=== PATIENT | male | born 1940 | race Caucasian/White ===

== ENCOUNTER → 2021-08-27 10:42 | Outpatient (CLI) | payer MEDICARE, OTHER, SELFPAY | PROVIDERS: PCP Family Medicine; Visit Provider Urology | DX: R39.9 Unspecified symptoms and signs involving the genitourinary system (principal) | CPT/HCPCS: 52000; 81002; 87086 ==

== ENCOUNTER 2021-08-29 18:15 | Emergency (ER) | payer MEDICARE, OTHER, SELFPAY ==
[2021-08-29 18:19] VITALS: BP 151/75; PULSE 77; RESP 19; TEMP 36.5; O2SAT 96; BMI 35.2
--- NOTE | 2021-08-29 18:21 | ED_ITS ---
HPI - Abdominal Pain General Chief Complaint: Urogenital-Male Stated Complaint: pain in the prostate/bladder, low grade fever Time Seen by Provider: 08/29/21 18:19 History of Present Illness HPI narrative: 80-year-old male nonsmoker presents with his in the chief complaint of some fullness and discomfort in his bladder for the past day or 2 as well as a subjective low-grade fever. He states his symptoms started after having a scope by the urologist a few days ago and having a catheter placed. He denies any nausea, vomiting or diarrhea. He has had no runny nose, sore throat or cough. He denies chest pain or shortness of breath. He is not dizzy nor weak or lightheaded. He denies any obvious palliation of his pain but states that it builds a bit while he feels like he is urinating and then goes away relatively soon afterwards Related Data Home Medications Medication Instructions Recorded Confirmed aspirin 81 mg tablet,delayed 81 mg PO DAILY 07/31/21 08/27/21 release losartan 100 1 tab PO DAILY 07/31/21 08/27/21 mg-hydrochlorothiazide 12.5 mg tablet melatonin 1 mg tablet 1 mg PO BEDTIME PRN 07/31/21 08/27/21 multivitamin (Daily Multi-Vitamin) 1 tab PO DAILY 07/31/21 08/27/21 tamsulosin 0.4 mg capsule 0.4 mg PO BEDTIME 07/31/21 08/27/21 Previous Rx's Medication Instructions Recorded cefuroxime axetil 500 mg tablet 500 mg PO BID #14 tab 08/29/21 Allergies Allergy/AdvReac Type Severity Reaction Status Date / Time meperidine [From Demerol] Allergy Unknown Verified 08/27/21 09:48 metronidazole [From Flagyl] Allergy Verified 08/29/21 18:27 Review of Systems Review of Systems Narrative: GENERAL: See HPI HEENT: Denies sinus pain, ear pain, sore throat, difficulty swallowing, dizziness. RESPIRATORY: Denies dyspnea, cough, wheezing, hemoptysis, sputum. CARDIOVASCULAR: Denies chest pain, palpitations, orthopnea, edema, GASTROINTESTINAL: See HPI : Denies dysuria, frequency, incontinence, hematuria, urinary retention. MUSCULOSKELETAL: denies weakness, joint pain, or bony pain SKIN: Denies rash, skin lesions, or other NEUROLOGIC: Denies weakness, headache, numbness, change in speech, confusion, seizures, incoordination. PSYCHIATRIC: No concerning psychosocial issues. 12 point review of systems is negative except for those stated above Patient History Medical History (Updated 08/29/21 @ 20:24 by Jensen Christianson DO) Arthritis BPH (benign prostatic hyperplasia) Coronary heart disease Diverticular disease Elevated PSA Heart attack High blood pressure Kidney stones Lower urinary tract symptoms Surgical History History of appendectomy History of colon surgery History of extraction of renal calculus History of prostate biopsy Family History Father BPH (benign prostatic hyperplasia) Coronary artery disease HI (hearing impairment) Mother Hyperlipidemia Hypertension Social History marital status: number of children: 4 Smoking Status: Never smoker alcohol intake: never caffeine: Yes Type(s) of exercise: walking frequency: daily duration: 15-30 minutes/day Smoking Status: Never smoker Exam Narrative Exam Narrative: GENERAL: [72 year old patient appears stated age. Well-developed patient, in mild distress. HEAD: Atraumatic. Normocephalic. EYES: Pupils equal round and reactive. Extraocular motions intact. No scleral icterus. No injection or drainage. ENT: Nose without bleeding, purulent drainage. Throat without erythema, tonsillar hypertrophy or exudate. Airway patent. NECK: Trachea midline. Non tender CARDIOVASCULAR: Regular rate and rhythm without murmurs, gallops, or rubs. RESPIRATORY: Clear to auscultation. Breath sounds equal bilaterally. No wheezes, rales, or rhonchi. GASTROINTESTINAL: Abdomen soft, mild suprapubic tenderness, nondistended. EXTREMITIES: No edema or joint tenderness. BACK: Nontender without deformity or crepitance. No flank tenderness. NEURO: AOx3. SKIN: No rash or erythema of visible areas Initial Vital Signs Initial Vital Signs: Vital Signs Temperature 97.7 F 08/29/21 18:19 Pulse Rate 77 08/29/21 18:19 Respiratory Rate 19 08/29/21 18:19 Blood Pressure 151/75 H 08/29/21 18:19 Pulse Oximetry 96 08/29/21 18:19 Course Orders Ordered: ED Orders 08/29/21 19:20 Ictotest Urine Stat UA dip and micro [Urinalysis and Microscopic] Stat Urine Culture Stat Discontinued Medications Cefazolin Sodium (Cephalexin 250 Mg Prepack) 1 bottle MISC SEEINSTR ONE Stop: 08/29/21 20:23 Last Admin: 08/29/21 20:30 Dose: 2 cap Documented by: SHALINI Vital Signs Vital signs: Vital Signs - 8 hr 08/29/21 18:19 08/29/21 20:37 Temperature 97.7 F 97.7 F Pulse Rate 77 72 Respiratory Rate 19 16 Blood Pressure 151/75 H 149/70 H Pulse Oximetry 96 96 MDM - Abdominal Pain Lab Data Labs: Lab Results 08/29/21 Range/Units 19:20 Urine Color Red Urine Appearance Cloudy Urine pH 6.5 (4.5-8.0) Ur Specific [place] 1.025 (1.000-1.035) Urine Protein 3+ H (Negative) Urine Glucose (UA) Trace H (Negative) g/dL Urine Ketones Trace H (NEGATIVE) Urine Occult Blood 3+ H (Negative) Urine Nitrate Positive H (Negative) Urine Bilirubin 1+ H (NEGATIVE) Ur Bilirubin Confirm Negative (Negative) Urine Urobilinogen 1.0 (0.2) E.U./dL Ur Leukocyte Esterase 1+ H (NEGATIVE) Urine RBC 10-30/hpf H (0-5/HPF) Urine WBC 5-10/hpf H (0-5/HPF) Amorphous Sediment 2+ Urine Bacteria Moderate (10-30) H (None) Ur Culture Indicated? Specimen cultured MDM Narrative Medical decision making narrative: Patient is reassuring history and physical exam. There are no signs of sepsis. Urine appears to be the source, particularly likely given recent instrumentation. Initial antibiotics given and prescription sent for the remainder. Return precautions discussed and questions answered to his apparent satisfaction Discharge Plan Departure Patient Disposition: Home Clinical Impression: Lower urinary tract symptoms Instructions: DI for Urinary Tract Infection (UTI) Activity Restrictions/Additional Instructions: *You have been diagnosed with [urinary tract infection] *What to do: *Please continue to take your regular medications as directed. [ x] New medication prescriptions sent to your pharmacy: [[facility] in [place]] [ ] New medication written as a paper prescription [ ] No new medications given *Please follow up with your primary care provider in 2-3 days, call for an appointment. Let them know you were seen in the Emergency Department and that we ask that you be seen in follow up. We will electronically transmit a record of today's note if your PCP is in our system *If you do not have a primary care provider please contact the [facility] Resource line at [phone]. They will ask some questions about your medical history and help get you set up with a doctor in the community. *Return to Emergency Department if you should have any new, worsening or concerning symptoms, such as [fever greater than 101 F, shaking chills, worsening pain, persistent vomiting or other bothersome symptoms] Prescriptions: New cefuroxime axetil 500 mg tablet 500 mg PO BID Qty: 14 0RF No Action tamsulosin 0.4 mg capsule 0.4 mg PO BEDTIME 0RF losartan-hydrochlorothiazide 100-12.5 mg tablet 1 tab PO DAILY 0RF aspirin 81 mg tablet,delayed release (DR/EC) 81 mg PO DAILY 0RF melatonin 1 mg tablet 1 mg PO BEDTIME PRN0RF multivitamin [Daily Multi-Vitamin] Tablet 1 tab PO DAILY 0RF Referrals: Callum Jain MD [Primary Care Provider] -
[2021-08-29 19:36] LABS: Appearance Urine UA CLOUDY; Bilirubin Urine UA 1+ (NEGATIVE); Color Urine UA RED; Glucose Urine UA TRACE g/dL (Negative); Ketones Urine UA TRACE (NEGATIVE); Leukocyte Esterase Urine UA 1+ (NEGATIVE); Nitrite Urine UA POSITIVE (Negative); Occult Blood Urine UA 3+ (Negative); Protein Urine UA 3+ (Negative); Specific Gravity Urine UA 1.025 (1.000-1.035); pH Urine UA 6.5 (4.5-8.0)
[2021-08-29 20:01] LABS: Ictotest Urine Negative (Negative)
[2021-08-29 20:02] LABS: Amorphous Sediment Urine 2+; Bacteria Urine Moderate (10-30); Culture Indicated Urine Specimen Cultured; RBC Urine 10-30/HPF (0-5/HPF); WBC Urine 5-10/HPF (0-5/HPF)
[2021-08-29] MEDS: cephALEXin 250 MG PREPACK 1 BOTTLE MISC (20:30)
[2021-08-29 20:37] VITALS: BP 149/70; PULSE 72; RESP 16; TEMP 36.5; O2SAT 96
== END 2021-08-29 20:35 | disposition home or self-care (01) ==
PROVIDERS: Emergency Provider Emergency Medicine; PCP Family Medicine
DX: N39.0 Urinary tract infection, site not specified (principal); R39.9 Unspecified symptoms and signs involving the genitourinary system
CPT/HCPCS: 81001; 87086; 99281; 99282

== ENCOUNTER 2021-10-12 13:02 | Emergency (ER) | payer MEDICARE, OTHER, SELFPAY ==
[2021-10-12] VITALS (20 sets, daily range): BP systolic 188–213; BP diastolic 91–109; PULSE 57–77; RESP 14–20; TEMP 36.3; O2SAT 92–97; BMI 33.7
--- NOTE | 2021-10-12 13:13 | ED.ABDPAIN ---
HPI - Abdominal Pain General Stated Complaint: Severe abd pain- hx of prostate issues Time Seen by Provider: 10/12/21 13:12 Related Data Home Medications Medication Instructions Recorded Confirmed losartan 100 1 tab PO DAILY 07/31/21 09/12/21 mg-hydrochlorothiazide 12.5 mg tablet melatonin 1 mg tablet 1 mg PO BEDTIME PRN 07/31/21 09/12/21 multivitamin (Daily Multi-Vitamin) 1 tab PO DAILY 07/31/21 09/12/21 Previous Rx's Medication Instructions Recorded tamsulosin 0.4 mg capsule (Flomax) 0.8 mg PO DAILY #90 cap 09/12/21 finasteride 5 mg tablet 5 mg PO DAILY #30 tab 09/16/21 Allergies Allergy/AdvReac Type Severity Reaction Status Date / Time meperidine [From Demerol] Allergy Unknown Verified 09/12/21 08:16 metronidazole [From Flagyl] Allergy Verified 09/12/21 08:16 Patient History Medical History (Updated 09/16/21 @ 14:44 by Macario Montes De Oca MD) Arthritis BPH (benign prostatic hyperplasia) Coronary heart disease Diverticular disease Elevated PSA Heart attack High blood pressure Kidney stones Lower urinary tract symptoms Urinary retention due to benign prostatic hyperplasia Surgical History History of appendectomy History of colon surgery History of extraction of renal calculus History of prostate biopsy Family History Father BPH (benign prostatic hyperplasia) Coronary artery disease HI (hearing impairment) Mother Hyperlipidemia Hypertension Social History marital status: number of children: 4 Smoking Status: Never smoker alcohol intake: never caffeine: Yes Type(s) of exercise: walking frequency: daily duration: 15-30 minutes/day Smoking Status: Never smoker Substance Use Type: does not use Discharge Plan Departure Prescriptions: No Action finasteride 5 mg tablet 5 mg PO DAILY Qty: 30 0RF losartan-hydrochlorothiazide 100-12.5 mg tablet 1 tab PO DAILY 0RF melatonin 1 mg tablet 1 mg PO BEDTIME PRN0RF multivitamin [Daily Multi-Vitamin] Tablet 1 tab PO DAILY 0RF tamsulosin [Flomax] 0.4 mg capsule 0.8 mg PO DAILY Qty: 90 0RF Rx Instructions: In the morning, 30 minutes after eating breakfast. Referrals: Callum Jain MD [Primary Care Provider] -
--- NOTE | 2021-10-12 13:25 | PC.NURSE ---
patient has urine retention and pain in ABD. A cathetor was placed and the pain in bladder diminished but the lower abd pain stayed.
--- NOTE | 2021-10-12 13:34 | ED.MALEGU ---
HPI - Male Genitourinary <Krystal Ryan [facility] - Last Filed: 10/12/21 18:43> General Chief complaint: Urogenital-Male Stated complaint: Severe abd pain- hx of prostate issues Time Seen by Provider: 10/12/21 13:12 Source: patient and family Mode of arrival: Family Vehicle History of Present Illness HPI Narrative: This is a 80-year-old male who presents to the emergency department complaining of epigastric pain, an and inability to void. Patient has a history of BPH, hypertension on losartan/HCTZ, history of renal calculi 1 time, diverticular disease. Patient had a recent cystoscopy by Dr. Montes De Oca on 09/12/2021 showing bilobar obstructive character of his prostate, it was measured at between 115 and 162 cc in volume. Patient presents to the emergency department today with urinary retention and epigastric pain which has been ongoing for the last week he states. He has a history of appendectomy, colon surgery, but no other abdominal surgeries. He states he had a large bowel movement this morning but did not have any bowel movement yesterday. He endorses sensation of abdominal bloating, he has dull pain across the right upper quadrant his abdomen, denies any history of GERD, does not take any medication for this. He has history of hypertension, states that he took his medications this morning. He states that his pain is an 8/10 in his abdomen, he had a Barrera catheter placed in triage for a bladder volume of 600, over 600 mL of clear yellow her urine is draining in the Barrera catheter currently. He takes tamsulosin and finasteride for his BPH. Patient denies any blood in his stool, denies any pelvic pressure or pain after his catheterization. Denies any recent fever, lightheadedness, dizziness, chest pain, shortness of breath, back pain, or vomiting. He endorses mild nausea. Related Data Home Medications Medication Instructions Recorded Confirmed losartan 100 1 tab PO DAILY 07/31/21 09/12/21 mg-hydrochlorothiazide 12.5 mg tablet melatonin 1 mg tablet 1 mg PO BEDTIME PRN 07/31/21 09/12/21 multivitamin (Daily Multi-Vitamin) 1 tab PO DAILY 07/31/21 09/12/21 Previous Rx's Medication Instructions Recorded tamsulosin 0.4 mg capsule (Flomax) 0.8 mg PO DAILY #90 cap 09/12/21 finasteride 5 mg tablet 5 mg PO DAILY #30 tab 09/16/21 hydrocodone 5 mg-acetaminophen 325 1 tab PO Q4-6H PRN #14 tab 10/12/21 mg tablet omeprazole 20 mg capsule,delayed 20 mg PO DAILY 14 Days #20 cap 10/12/21 release polyethylene glycol 3350 17 17 g PO DAILY PRN #119 g 10/12/21 gram/dose oral powder (Miralax) Allergies Allergy/AdvReac Type Severity Reaction Status Date / Time meperidine [From Demerol] Allergy Unknown Verified 09/12/21 08:16 metronidazole [From Flagyl] Allergy Verified 09/12/21 08:16 Review of Systems <CHARLES Burnette - Last Filed: 10/12/21 18:43> Review of Systems Narrative: General: denies fever, chills, malaise, sweats, fatigue Head/Neck: denies headache, neck pain, dizziness Eyes: denies visual changes, eye pain Cardio: denies chest pain, palpitations, edema Respiratory: denies dyspnea, cough, orthopnea GI: Endorses epigastric and right upper quadrant abdominal pain, + nausea, denies any vomiting, or diarrhea or problems with constipation : denies dysuria, hematuria, endorses urinary retention without frequency or incontinence MSK: denies joint pain, muscle weakness Skin: denies rash, itching, skin lesions or other Neuro: denies numbness, tingling Patient History <CHARLES Burnette - Last Filed: 10/12/21 18:43> Medical History Arthritis BPH (benign prostatic hyperplasia) Coronary heart disease Diverticular disease Elevated PSA Heart attack High blood pressure Kidney stones Lower urinary tract symptoms Urinary retention due to benign prostatic hyperplasia Surgical History History of appendectomy History of colon surgery History of extraction of renal calculus History of prostate biopsy Family History Father BPH (benign prostatic hyperplasia) Coronary artery disease [place] (hearing impairment) Mother Hyperlipidemia Hypertension Social History marital status: number of children: 4 Smoking Status: Never smoker alcohol intake: never caffeine: Yes Type(s) of exercise: walking frequency: daily duration: 15-30 minutes/day Smoking Status: Never smoker alcohol intake frequency: 0-2 drinks per day Substance Use Type: does not use Exam <CHARLES Burnette - Last Filed: 10/12/21 18:43> Narrative Exam Narrative: Independently reviewed vitals signs and nursing notes. General: cooperative, comfortable, in no acute distress, well developed and well groomed Head: atraumatic, symmetrical facial expressions Neck: supple, atraumatic, without lymphadenopathy. Eyes: pupils equal round and reactive, EOMI, conjunctiva normal Nose: nares patent, no rhinorrhea Mouth/Throat: uvula midline, moist mucus membranes Cardiovascular: regular rate and rhythm, no peripheral edema, warm extremities Respiratory: normal effort, able to speak in complete sentences, no audible wheezing, stridor, or rales. No retractions or tachypnea. GI: abdomen soft, obese, tender to palpation in epigastrium and right upper quadrant, mildly distended, no masses, without guarding or rebound tenderness. MSK: moves all extremities, ambulatory w/steady gait, neurovascularly intact, no weakness Skin: brisk capillary refill, no rash, no erythema Neuro: normal speech and cognition, A&O x3, normal tone Psych: mental status is grossly normal, congruent mood, normal affect, pleasant and cooperative Initial Vital Signs Initial Vital Signs: Vital Signs Pulse Oximetry 96 10/12/21 13:13 <Jensen Christianson DO - Last Filed: 10/13/21 09:24> Initial Vital Signs Initial Vital Signs: Vital Signs Pulse Oximetry 96 10/12/21 13:13 Course <CHARLES Burnette - Last Filed: 10/12/21 18:43> Orders Ordered: Discontinued Medications Hydrocodone Bitart/Acetaminophen (Hydrocodone/Acet 5/325 Tablet) 1 tab PO NOW ONE Stop: 10/12/21 14:25 Last Admin: 10/12/21 14:57 Dose: 1 tab Documented by: KYAW Hydrocodone Bitart/Acetaminophen (Hydrocodone/Acet 5/325 Prepack) 1 bottle MISC SEEINSTR ONE Stop: 10/12/21 18:47 Last Admin: 10/12/21 18:52 Dose: 1 bottle Documented by: KYAW Hydromorphone HCl (Hydromorphone 0.5 Mg Inj) 0.5 mg IV NOW ONE Stop: 10/12/21 17:17 Last Admin: 10/12/21 17:21 Dose: 0.5 mg Documented by: KYAW Ceftriaxone Sodium 1,000 mg/ (Sodium Chloride) 100 mls @ 200 mls/hr IV NOW ONE Stop: 10/12/21 13:54 Last Infusion: 10/12/21 17:14 Dose: 0 mls/hr Documented by: Admin: 10/12/21 14:23 Dose: 200 mls/hr Documented by: THOMAS Sodium Chloride (Normal Saline 0.9%) 500 mls @ 1,000 mls/hr IV BOLUS PRN PRN Reason: Fluid replacement Last Infusion: 10/12/21 17:42 Dose: 0 mls/hr Documented by: Admin: 10/12/21 15:00 Dose: 1,000 mls/hr Documented by: KYAW Ketorolac Tromethamine (Ketorolac 30 Mg/Ml Vial) 15 mg IV NOW ONE Stop: 10/12/21 13:54 Last Admin: 10/12/21 14:24 Dose: 15 mg Documented by: THOMAS Losartan Potassium (Losartan 25 Mg Tablet) 25 mg PO NOW ONE Stop: 10/12/21 14:56 Last Admin: 10/12/21 15:06 Dose: 25 mg Documented by: KYAW Ondansetron HCl (Ondansetron 4 Mg/2 Ml Inj) 4 mg IV NOW ONE Stop: 10/12/21 14:25 Last Admin: 10/12/21 14:57 Dose: 4 mg Documented by: KYAW Ondansetron HCl (Ondansetron 4 Mg/2 Ml Inj) 4 mg IV NOW ONE Stop: 10/12/21 18:47 Last Admin: 10/12/21 18:52 Dose: 4 mg Documented by: KYAW Ondansetron HCl (Ondansetron 4 Mg Odt Prepack) 1 bottle MISC SEEINSTR ONE Stop: 10/12/21 18:47 Last Admin: 10/12/21 18:52 Dose: 1 bottle Documented by: KYAW Pantoprazole Sodium (Pantoprazole 40 Mg Vial) 40 mg IV NOW ONE Stop: 10/12/21 14:24 Last Admin: 10/12/21 14:57 Dose: 40 mg Documented by: KYAW Reevaluation(s) Reevaluation #1: Reassess patient after his pain medication and ultrasound results. He states that he feels much better currently, denies any pain over a 3/10. Ultrasound shows no evidence cholelithiasis or cholecystitis however patient had a sonographic Becker sign. Ultrasound also showed an echogenic liver. Biliary tree is upper limits of normal measuring 6.6 mm, pancreas was obscured by bowel gas, incidental 8 mm gallbladder polyp was visible, gallbladder wall measured 2.0 mm. No pericholecystic fluid. Vital Signs Vital signs: Vital Signs - 8 hr 10/12/21 13:13 10/12/21 13:14 10/12/21 13:19 Temperature 97.4 F L Pulse Rate 65 57 L Respiratory Rate 20 Blood Pressure 213/100 H 213/100 H Pulse Oximetry 96 95 96 10/12/21 13:23 10/12/21 13:30 10/12/21 14:00 Temperature Pulse Rate 62 74 70 Respiratory Rate Blood Pressure 194/100 H 193/99 H Pulse Oximetry 95 95 96 10/12/21 14:01 10/12/21 14:30 10/12/21 14:31 Temperature Pulse Rate 67 69 68 Respiratory Rate Blood Pressure 204/98 H 208/92 H Pulse Oximetry 95 97 97 10/12/21 14:54 10/12/21 15:00 10/12/21 15:01 Temperature Pulse Rate 63 62 67 Respiratory Rate Blood Pressure 209/91 H 196/91 H Pulse Oximetry 96 92 92 10/12/21 15:06 10/12/21 15:38 10/12/21 16:00 Temperature Pulse Rate 77 71 67 Respiratory Rate Blood Pressure 196/91 H Pulse Oximetry 92 94 10/12/21 17:10 10/12/21 17:11 10/12/21 17:30 Temperature Pulse Rate 65 63 75 Respiratory Rate Blood Pressure 200/109 H 188/98 H Pulse Oximetry 94 94 93 10/12/21 18:00 Temperature Pulse Rate 63 Respiratory Rate Blood Pressure 192/99 H Pulse Oximetry 97 <Jensen Christianson DO - Last Filed: 10/13/21 09:24> Orders Ordered: Discontinued Medications Hydrocodone Bitart/Acetaminophen (Hydrocodone/Acet 5/325 Tablet) 1 tab PO NOW ONE Stop: 10/12/21 14:25 Last Admin: 10/12/21 14:57 Dose: 1 tab Documented by: KYAW Hydrocodone Bitart/Acetaminophen (Hydrocodone/Acet 5/325 Prepack) 1 bottle MISC SEEINSTR ONE Stop: 10/12/21 18:47 Last Admin: 10/12/21 18:52 Dose: 1 bottle Documented by: KYAW Hydromorphone HCl (Hydromorphone 0.5 Mg Inj) 0.5 mg IV NOW ONE Stop: 10/12/21 17:17 Last Admin: 10/12/21 17:21 Dose: 0.5 mg Documented by: KYAW Ceftriaxone Sodium 1,000 mg/ (Sodium Chloride) 100 mls @ 200 mls/hr IV NOW ONE Stop: 10/12/21 13:54 Last Infusion: 10/12/21 17:14 Dose: 0 mls/hr Documented by: Admin: 10/12/21 14:23 Dose: 200 mls/hr Documented by: THOMAS Sodium Chloride (Normal Saline 0.9%) 500 mls @ 1,000 mls/hr IV BOLUS PRN PRN Reason: Fluid replacement Last Infusion: 10/12/21 17:42 Dose: 0 mls/hr Documented by: Admin: 10/12/21 15:00 Dose: 1,000 mls/hr Documented by: KYAW Ketorolac Tromethamine (Ketorolac 30 Mg/Ml Vial) 15 mg IV NOW ONE Stop: 10/12/21 13:54 Last Admin: 10/12/21 14:24 Dose: 15 mg Documented by: THOMAS Losartan Potassium (Losartan 25 Mg Tablet) 25 mg PO NOW ONE Stop: 10/12/21 14:56 Last Admin: 10/12/21 15:06 Dose: 25 mg Documented by: KYAW Ondansetron HCl (Ondansetron 4 Mg/2 Ml Inj) 4 mg IV NOW ONE Stop: 10/12/21 14:25 Last Admin: 10/12/21 14:57 Dose: 4 mg Documented by: KYAW Ondansetron HCl (Ondansetron 4 Mg/2 Ml Inj) 4 mg IV NOW ONE Stop: 10/12/21 18:47 Last Admin: 10/12/21 18:52 Dose: 4 mg Documented by: KYAW Ondansetron HCl (Ondansetron 4 Mg Odt Prepack) 1 bottle MISC SEEINSTR ONE Stop: 10/12/21 18:47 Last Admin: 10/12/21 18:52 Dose: 1 bottle Documented by: KYAW Pantoprazole Sodium (Pantoprazole 40 Mg Vial) 40 mg IV NOW ONE Stop: 10/12/21 14:24 Last Admin: 10/12/21 14:57 Dose: 40 mg Documented by: KYAW Vital Signs Vital signs: Vital Signs - 8 hr 10/12/21 13:13 10/12/21 13:14 10/12/21 13:19 Temperature 97.4 F L Pulse Rate 65 57 L Respiratory Rate 20 Blood Pressure 213/100 H 213/100 H Pulse Oximetry 96 95 96 10/12/21 13:23 10/12/21 13:30 10/12/21 14:00 Temperature Pulse Rate 62 74 70 Respiratory Rate Blood Pressure 194/100 H 193/99 H Pulse Oximetry 95 95 96 10/12/21 14:01 10/12/21 14:30 10/12/21 14:31 Temperature Pulse Rate 67 69 68 Respiratory Rate Blood Pressure 204/98 H 208/92 H Pulse Oximetry 95 97 97 10/12/21 14:54 10/12/21 15:00 10/12/21 15:01 Temperature Pulse Rate 63 62 67 Respiratory Rate Blood Pressure 209/91 H 196/91 H Pulse Oximetry 96 92 92 10/12/21 15:06 10/12/21 15:38 10/12/21 16:00 Temperature Pulse Rate 77 71 67 Respiratory Rate Blood Pressure 196/91 H Pulse Oximetry 92 94 10/12/21 17:10 10/12/21 17:11 10/12/21 17:30 Temperature Pulse Rate 65 63 75 Respiratory Rate Blood Pressure 200/109 H 188/98 H Pulse Oximetry 94 94 93 10/12/21 18:00 Temperature Pulse Rate 63 Respiratory Rate Blood Pressure 192/99 H Pulse Oximetry 97 MDM - Male Genitourinary <Krystal Ryan, [facility] - Last Filed: 10/12/21 18:43> Lab Data Result diagrams: 10/12/21 14:15 10/12/21 14:15 Labs: Lab Results 10/12/21 10/12/21 10/12/21 Range/Units 13:21 14:15 14:15 WBC 7.9 (4.5-11.0) X10^3/uL RBC 4.73 (4.5-5.9) X10^6/uL Hgb 15.5 (13.5-17.5) g/dL Hct 43.6 (41-53) % MCV 92.3 (80-100) fL MCH 32.7 (26-34) PG MCHC 35.5 (30-36) % RDW 13.3 (11.6-14.8) % Plt Count 218 (150-400) X10^3/uL Neut % (Auto) 76.2 H (50-75) % Lymph % (Auto) 10.0 L (25-40) % [place] % (Auto) 13.2 (3-14) % Eos % (Auto) 0.4 L (2-4) % Baso % (Auto) 0.2 (0-2) % Neut # (Auto) 6100 (065[address]-6588) /uL Lymph # (Auto) 800 L (5062-1148) /uL [place] # (Auto) 1000 H (0-900) /uL Eos # (Auto) 0 (0-450) /uL Baso # (Auto) 0 (0-100) /uL Sodium 138 (137-145) mmol/L Potassium 3.4 (3.4-5.1) mmol/L Chloride 103 (98-107) mmol/L Carbon Dioxide 25 (22-32) mmol/L BUN 15 (9-20) mg/dL Creatinine 1.13 (0.66-1.25) mg/dL Estimated GFR > 60.0 (>60) mL/min BUN/Creatinine Ratio 13.3 (6-22) Glucose 153 H (80-110) mg/dL Calcium 9.2 (8.4-10.2) mg/dL Total Bilirubin 2.2 H (0.2-1.3) mg/dL AST 660 H (17-59) IU/L ALT 403 H (<50) IU/L Alkaline Phosphatase 67 (38-126) U/L Total Protein 7.7 (6.3-8.2) g/dL Albumin 4.3 (3.5-5.0) g/dL Globulin 3.4 (1.7-4.1) g/dL Albumin/Globulin Ratio 1.3 (1.0-2.8) Lipase 91 (23-300) U/L Procalcitonin (<0.5) ng/mL Urine Color Yellow Urine Appearance Clear Urine pH 6.5 (4.5-8.0) Ur Specific [place] 1.015 (1.000-1.035) Urine Protein 2+ H (Negative) Urine Glucose (UA) Negative (Negative) g/dL Urine Ketones Negative (NEGATIVE) Urine Occult Blood 1+ H (Negative) Urine Nitrate Negative (Negative) Urine Bilirubin Negative (NEGATIVE) Urine Urobilinogen 0.2 (0.2) E.U./dL Ur Leukocyte Esterase Negative (NEGATIVE) Urine RBC 5-10/hpf H (0-5/HPF) Urine WBC 0-1/hpf (0-5/HPF) Ur Squamous Epith Cells 0-1 /hpf (0-5/HPF) Urine Bacteria None seen (None) Ur Culture Indicated? Cult not indicated 10/12/21 Range/Units 14:15 WBC (4.5-11.0) X10^3/uL RBC (4.5-5.9) X10^6/uL Hgb (13.5-17.5) g/dL Hct (41-53) % MCV (80-100) fL MCH (26-34) PG MCHC (30-36) % RDW (11.6-14.8) % Plt Count (150-400) X10^3/uL Neut % (Auto) (50-75) % Lymph % (Auto) (25-40) % [place] % (Auto) (3-14) % Eos % (Auto) (2-4) % Baso % (Auto) (0-2) % Neut # (Auto) (7540-9715) /uL Lymph # (Auto) (2629-3198) /uL [place] # (Auto) (0-900) /uL Eos # (Auto) (0-450) /uL Baso # (Auto) (0-100) /uL Sodium (137-145) mmol/L Potassium (3.4-5.1) mmol/L Chloride (98-107) mmol/L Carbon Dioxide (22-32) mmol/L BUN (9-20) mg/dL Creatinine (0.66-1.25) mg/dL Estimated GFR (>60) mL/min BUN/Creatinine Ratio (6-22) Glucose (80-110) mg/dL Calcium (8.4-10.2) mg/dL Total Bilirubin (0.2-1.3) mg/dL AST (17-59) IU/L ALT (<50) IU/L Alkaline Phosphatase (38-126) U/L Total Protein (6.3-8.2) g/dL Albumin (3.5-5.0) g/dL Globulin (1.7-4.1) g/dL Albumin/Globulin Ratio (1.0-2.8) Lipase (23-300) U/L Procalcitonin 0.14 (<0.5) ng/mL Urine Color Urine Appearance Urine pH (4.5-8.0) Ur Specific [place] (1.000-1.035) Urine Protein (Negative) Urine Glucose (UA) (Negative) g/dL Urine Ketones (NEGATIVE) Urine Occult Blood (Negative) Urine Nitrate (Negative) Urine Bilirubin (NEGATIVE) Urine Urobilinogen (0.2) E.U./dL Ur Leukocyte Esterase (NEGATIVE) Urine RBC (0-5/HPF) Urine WBC (0-5/HPF) Ur Squamous Epith Cells (0-5/HPF) Urine Bacteria (None) Ur Culture Indicated? Urine Dip Bedside Urine Glucose Negative Bedside Urine Bilirubin - Negative Bedside Urine Ketone - Negative Urine Specific [place] 1.03 Bedside Urine Occult Blood ++ Bedside Urine pH 6 Bedside Urine Protein + 30 Bedside Urine Urobilinogen - Negative Bedside Urine Nitrite - Negative Bedside Urine Leukocytes - Negative Esterase Imaging Data US - abdomen: Radiologist's Impression: PROCEDURE: US ABDOMEN LIMITED ? INDICATIONS:? RUQ/EPIGASTRIC PAIN ? TECHNIQUE:? Real-time focused scanning was performed of the abdomen, with image documentation.? ? COMPARISON:? None. ? FINDINGS:? ? Liver is normal in size.? Liver is diffusely echogenic. ? 8 millimeter gallbladder polyp noted.? Gallbladder wall measures 2.0 millimeters.? No pericholecystic fluid.? Sonographic Becker sign reported. ? Biliary tree is nondilated.? Biliary tree is at the upper limits of normal measuring 6.6 millimeters. ? Pancreas is obscured by bowel gas.? ? ? IMPRESSION:? ? 1. No sonographic evidence of cholelithiasis or cholecystitis.? Sonographic Becker sign reported. If there is continued clinical concern for cholecystitis, a nuclear medicine HIDA scan should be considered for further evaluation. ? 2. Echogenic liver. Finding typically represents fatty infiltration; however, finding is nonspecific and correlation with clinical and laboratory findings is recommended to exclude other etiologies including hepatic cirrhosis. ? ? ? Dictated by: Jolanta Go MD, PhD on 10/12/2021 at 14:52 ? ? Approved by: Jolanta Go MD, PhD on 10/12/2021 at 14:53 ? CT scan - abdomen/pelvis: Radiologist's Impression: PROCEDURE:? CT ABDOMEN PELVIS W CON ? INDICATIONS:? epigastric pain, no kayla etiology on us, +ruq pain/tenderness ? TECHNIQUE:? After the administration of oral and IV contrast, axial sections were acquired from the lung bases to the pubic symphysis.? Coronal and sagittal reformats were performed.? For radiation dose reduction, the following was used:? automated exposure control, adjustment of mA and/or kV according to patient size. ? COMPARISON:? [facility], , US ABDOMEN LIMITED, 10/12/2021, 14:28. ? FINDINGS:? Image quality:? Excellent.? ? Lung bases:? Unremarkable.? ? A small hiatal hernia is incidentally noted.? Heart:? No significant findings. ? ? ABDOMEN: Liver: The liver is normal in size and demonstrates no suspicious lesions. Diffuse fatty liver infiltration is noted.? Gallbladder:? The liver is prominent in size, without additional CT abnormalities seen. ? ? Biliary ducts:? Unremarkable.? ? Pancreas:? Unremarkable.? ? Spleen:? Unremarkable.? ? Adrenal Glands:? There is a right adrenal nodule seen that measures 1.5 cm, as on series 2, image 19. On this postcontrast study, this measures 27 Hounsfield units.? Thickening of the left adrenal gland is seen, yet without focal nodules.? Kidneys and Ureters:? Along the lateral aspect of the right kidney, there is an exophytic simple cyst that measures water density and 1.3 cm.? Kidneys demonstrate normal size and enhance symmetrically.? There is no hydronephrosis.? ? Stomach and Bowel:? Stomach, small bowel loops, and colon are unremarkable.? Distal colonic diverticulosis is seen, without findings of active diverticulitis. Peritoneum:? No abnormal intraperitoneal fluid.? No free air.? ? Ventral Wall: ? No hernia.? Abdominal Nodes:? No retroperitoneal or mesenteric adenopathy by size criteria.? Vessels:? Aorta and inferior vena cava are normal in size.? Atherosclerotic calcification is noted.? ? PELVIS: Pelvic Organs:? The prostate is enlarged, measuring at least 7.5 cm. Bladder:? A Barrera catheter is seen within a decompressed bladder.? The bladder wall demonstrates moderate generalized thickening. Pelvic Nodes: No enlarged lymph nodes.? Miscellaneous: No inguinal hernias are seen. ? ? Pelvic clips are seen. ? Bones:? Degenerative changes are seen throughout, which are worst at the L5-S1 level. ? ? IMPRESSION:? ? Prominent size of the gallbladder seen, yet without additional gallbladder abnormality seen by CT. ? ? ? Incidental note is made of: Small hiatal hernia Fatty liver infiltration Simple right renal cyst Diverticulosis, without active diverticulitis Focal L5-S1 degenerative change Postoperative pelvic clips Enlarged prostate Barrera catheter, with generalized bladder wall thickening ? ? Dictated by: Guy Leiva M.D. on 10/12/2021 at 14:39 ? ? Approved by: Guy Leiva M.D. on 10/12/2021 at 14:44 ? Abdominal MRI: Radiologist's Impression: PROCEDURE:? MR ABDOMEN WO CON ? INDICATIONS:? +becker, concern for biliary obstruction, not evident on CT/ ? TECHNIQUE:? Coronal HASTE through the abdomen, axial 2-D FLASH in- and [id number], and breath-hold T2 FSE with fat saturation through the biliary system and pancreas.? Oblique coronal and axial thin-slice HASTE, radial thick-slab HASTE centered on the extrahepatic bile ducts.? ? ? Intravenous secretin:? Not requested.? ? COMPARISON:? [facility], CT, CT ABDOMEN PELVIS W CON, 10/12/2021, 15:30.? [facility], US, US ABDOMEN LIMITED, 10/12/2021, 14:28. ? FINDINGS:? Image quality:? This examination is limited by involuntary motion artifact.? The patient declined repeat images. ? Pancreas and biliary system:? Fat stranding is again seen adjacent to the gallbladder.? No definite gallstones are seen on these images.? A likely nondependent gallbladder wall polyp can be seen.? The gallbladder is prominent in size. ? No intrahepatic biliary ductal dilatation is seen.? The common bile duct measures at the upper limits of normal at 7 mm.? There is an abrupt cut off of the distal common bile duct, without smooth tapering.? ? Pancreas is normal in morphology, without adjacent soft tissue edema.? Pancreatic duct is normal in caliber, without developmental anomalies.? ? Other solid organs:? Liver is normal in size.? Diffuse fatty liver infiltration can be seen.? Spleen is normal in size.? No adrenal nodules.? Both kidneys are normal in size, without hydronephrosis.? ? Nodes and vessels:? No retroperitoneal or mesenteric adenopathy by size criteria.? Aorta and inferior vena cava are normal in size.? ? Bowel and peritoneum:? Unenhanced bowel loops are normal in caliber.? No free fluid.? ? Lung bases:? No basal pleural effusions.? Heart size is normal.? ? Bones and soft tissues:? No ventral hernias.? Bone marrow is of normal overall signal.? IMPRESSION:? Prominent gallbladder with fluid seen adjacent to the gallbladder. ? No definite gallstones are seen. ? The common bile duct measures at the upper limits of normal.? The distal common bile duct demonstrates an abrupt cutoff, rather than a smooth taper.? Concern is raised for a potential distal common duct stone.? No stone can be seen at this site on the recent prior CT examination.? If clinically appropriate, a follow-up ERCP could be considered for further evaluation. ? Incidental note is made of: Fatty liver infiltration ? Dictated by: Guy Leiva M.D. on 10/12/2021 at 16:50 ? ? Approved by: Guy Leiva M.D. on 10/12/2021 at 16:54 ? MDM Narrative Medical decision making narrative: 80-year-old male with history of BPH on finasteride and tamsulosin, hypertension on losartan/HCTZ, presents to the emergency department today for right upper quadrant and epigastrium pain, additionally urinary retention related to his BPH. Patient had a cystoscopy by Dr. Montes De Oca on 09/12/2021 with a prostate them measured between 115 and 162 cc in volume. He had bulging into the bladder and prostate margin was difficult to see. He had urinary retention at that time and was started on tamsulosin 0.8 mg. Today he did have urinary retention, over 600 mL of clear yellow urine was in his bladder, a Barrera catheter was placed. He was found to have 1+ blood, 2+ protein, without signs of infection of his urine. Patient was complaining of epigastric pain and nausea. Denies any vomiting fever, back pain, chest pain, shortness of breath. He was tender in the right upper quadrant, right upper quadrant ultrasound to not have sonographic evidence of cholelithiasis or cholecystitis. He he did have a sonographic Becker sign, an 8 mm gallbladder polyp was noted, gallbladder wall measured 2 mm, no pericholecystic fluid. Biliary tree was nondilated but measured the upper limits of normal at 6.[address] was obtained to correlate with elevated liver enzymes, T bilirubin of 2.2, sonographic Becker sign, no leukocytosis, patient does have a left shift however, AST is 660, ALT for a 3, alk phos 67, lipase 91, procalcitonin 0.14, hepatitis panel is pending. CT abdomen shows diverticular disease without evidence of diverticulosis, prominent size of the gallbladder is seen without additional gallbladder abnormality on CT. Incidentally patient has a small hiatal hernia, fatty liver infiltration, simple right renal cyst, postoperative pelvic clips, enlarged prostate, Barrera catheter with generalized bladder wall thickening. MRCP obtained which shows a prominent gallbladder however no biliary duct stone was visualized common bile duct measures upper limits of normal, distal common bile duct demonstrates an abrupt cutoff rather than a smooth taper. Concern is raised for potential distal common duct stone. No stone was visualized on CT scan. Consult with Dr. Borja regarding patient's exam, lab work, pain, and p.o. tolerance. She recommends watchful waiting, follow-up with Dr. Jain for lab work in a few days to see how this is improving. Patient's pain is well controlled currently he received 1 hydrocodone and 1.5 mg dose of Dilaudid in the emergency department. Recommend he avoid ibuprofen. He was hypertensive today and states that he took his regular antihypertensive. He states that he has been in a lot of pain and is likely the reason for the elevation is blood pressure. Was given additional 25 mg of losartan due to his low heart rate I did want to give any beta-chandrika. Encouraged him to follow-up closely with Dr. Montes De Oca for his urinary retention. On cystoscopy on 09/12/2021 volume study shows an enlarged prostate at approximately 150 cc. He was started on 0.8 mg of tamsulosin in addition to his finasteride. Dr. Montes De Oca notes that if he fails this treatment he recommends open simple prostatectomy. Patient is appropriate and amenable to discharge home. Vital signs are stable on repeat examination is unremarkable. Patient has been informed of results. Patient has been given strict return to ER precautions for any new or worsening symptoms. Patient understands to follow up closely with outpatient providers as instructed. Patient understands plan and agrees to discharge home. All questions and concerns answered at this time. <Jensen Christianson DO - Last Filed: 10/13/21 09:24> Lab Data Labs: Lab Results 10/12/21 10/12/21 10/12/21 Range/Units 13:21 14:15 14:15 WBC 7.9 (4.5-11.0) X10^3/uL RBC 4.73 (4.5-5.9) X10^6/uL Hgb 15.5 (13.5-17.5) g/dL Hct 43.6 (41-53) % MCV 92.3 (80-100) fL MCH 32.7 (26-34) PG MCHC 35.5 (30-36) % RDW 13.3 (11.6-14.8) % Plt Count 218 (150-400) X10^3/uL Neut % (Auto) 76.2 H (50-75) % Lymph % (Auto) 10.0 L (25-40) % [place] % (Auto) 13.2 (3-14) % Eos % (Auto) 0.4 L (2-4) % Baso % (Auto) 0.2 (0-2) % Neut # (Auto) 6100 (4804-9403) /uL Lymph # (Auto) 800 L (3130-1728) /uL [place] # (Auto) 1000 H (0-900) /uL Eos # (Auto) 0 (0-450) /uL Baso # (Auto) 0 (0-100) /uL Sodium 138 (137-145) mmol/L Potassium 3.4 (3.4-5.1) mmol/L Chloride 103 (98-107) mmol/L Carbon Dioxide 25 (22-32) mmol/L BUN 15 (9-20) mg/dL Creatinine 1.13 (0.66-1.25) mg/dL Estimated GFR > 60.0 (>60) mL/min BUN/Creatinine Ratio 13.3 (6-22) Glucose 153 H (80-110) mg/dL Calcium 9.2 (8.4-10.2) mg/dL Total Bilirubin 2.2 H (0.2-1.3) mg/dL AST 660 H (17-59) IU/L ALT 403 H (<50) IU/L Alkaline Phosphatase 67 (38-126) U/L Total Protein 7.7 (6.3-8.2) g/dL Albumin 4.3 (3.5-5.0) g/dL Globulin 3.4 (1.7-4.1) g/dL Albumin/Globulin Ratio 1.3 (1.0-2.8) Lipase 91 (23-300) U/L Procalcitonin (<0.5) ng/mL Urine Color Yellow Urine Appearance Clear Urine pH 6.5 (4.5-8.0) Ur Specific [place] 1.015 (1.000-1.035) Urine Protein 2+ H (Negative) Urine Glucose (UA) Negative (Negative) g/dL Urine Ketones Negative (NEGATIVE) Urine Occult Blood 1+ H (Negative) Urine Nitrate Negative (Negative) Urine Bilirubin Negative (NEGATIVE) Urine Urobilinogen 0.2 (0.2) E.U./dL Ur Leukocyte Esterase Negative (NEGATIVE) Urine RBC 5-10/hpf H (0-5/HPF) Urine WBC 0-1/hpf (0-5/HPF) Ur Squamous Epith Cells 0-1 /hpf (0-5/HPF) Urine Bacteria None seen (None) Ur Culture Indicated? Cult not indicated 10/12/21 Range/Units 14:15 WBC (4.5-11.0) X10^3/uL RBC (4.5-5.9) X10^6/uL Hgb (13.5-17.5) g/dL Hct (41-53) % MCV (80-100) fL MCH (26-34) PG MCHC (30-36) % RDW (11.6-14.8) % Plt Count (150-400) X10^3/uL Neut % (Auto) (50-75) % Lymph % (Auto) (25-40) % [place] % (Auto) (3-14) % Eos % (Auto) (2-4) % Baso % (Auto) (0-2) % Neut # (Auto) (6819-4461) /uL Lymph # (Auto) (5728-4066) /uL [place] # (Auto) (0-900) /uL Eos # (Auto) (0-450) /uL Baso # (Auto) (0-100) /uL Sodium (137-145) mmol/L Potassium (3.4-5.1) mmol/L Chloride (98-107) mmol/L Carbon Dioxide (22-32) mmol/L BUN (9-20) mg/dL Creatinine (0.66-1.25) mg/dL Estimated GFR (>60) mL/min BUN/Creatinine Ratio (6-22) Glucose (80-110) mg/dL Calcium (8.4-10.2) mg/dL Total Bilirubin (0.2-1.3) mg/dL AST (17-59) IU/L ALT (<50) IU/L Alkaline Phosphatase (38-126) U/L Total Protein (6.3-8.2) g/dL Albumin (3.5-5.0) g/dL Globulin (1.7-4.1) g/dL Albumin/Globulin Ratio (1.0-2.8) Lipase (23-300) U/L Procalcitonin 0.14 (<0.5) ng/mL Urine Color Urine Appearance Urine pH (4.5-8.0) Ur Specific [place] (1.000-1.035) Urine Protein (Negative) Urine Glucose (UA) (Negative) g/dL Urine Ketones (NEGATIVE) Urine Occult Blood (Negative) Urine Nitrate (Negative) Urine Bilirubin (NEGATIVE) Urine Urobilinogen (0.2) E.U./dL Ur Leukocyte Esterase (NEGATIVE) Urine RBC (0-5/HPF) Urine WBC (0-5/HPF) Ur Squamous Epith Cells (0-5/HPF) Urine Bacteria (None) Ur Culture Indicated? Urine Dip Bedside Urine Glucose Negative Bedside Urine Bilirubin - Negative Bedside Urine Ketone - Negative Urine Specific [place] 1.03 Bedside Urine Occult Blood ++ Bedside Urine pH 6 Bedside Urine Protein + 30 Bedside Urine Urobilinogen - Negative Bedside Urine Nitrite - Negative Bedside Urine Leukocytes - Negative Esterase Discharge Plan Departure Patient Disposition: Home Clinical Impression: Enlarged gallbladder, Diverticular disease, Gallbladder polyp, Fatty infiltration of liver, Epigastric abdominal pain Instructions: Eating a Diet Low in Saturated Fat, Trans Fat, and Cholesterol, Cholesterol-lowering Diet, DI for Cholecystitis Activity Restrictions/Additional Instructions: *You have been diagnosed with BPH with urinary retention. Please leave your Barrera catheter in until you follow-up with Dr. Montes De Oca. Please continue to take your finasteride and your tamsulosin unless he tells you otherwise. Please eat a diet low in fat for the next 2 weeks and follow up with Dr. Jain. We did not see any stone in your biliary duct system. Please take hydrocodone as needed for your pain with MiraLax so that you do not become too constipated. Please stay hydrated, take your other medications as prescribed. Please have your labs checked again by Dr. Jain to evaluate if this has resolved with your new diet change. Please return to the emergency department for any new or worsening symptoms. CONTROLLED SUBSTANCE DISCHARGE (Narcotic/benzodiazepine/Flexeril/Phenergan) 1. You have been prescribed narcotic medications, it does have acetaminophen/Tylenol/paracetamol in it, DO NOT TAKE MORE THAN 4,00mg in 24 hours of Tylenol. *Tramadol does not contain tylenol. 2. Please understand that we cannot provide further refills of narcotics, benzodiazepines or controlled substances through the ED and her pain management will need to be through your provider. 3. While on these medications you cannot drive or operate heavy machinery. 4. You cannot sign legal documents or perform any duties such as this. 5. As long as you are taking opiate pain medications he should also be taking a stool softener such as Colace, Dulcolax, MiraLAX or prune juice, to help avoid constipation. *What to do: *Please continue to take your regular medications as directed. [x ] New medication prescriptions sent to your pharmacy: [ ] [ ] New medication written as a paper prescription [ ] No new medications given *Please follow up with your primary care provider in 2-3 days, call for an appointment. Let them know you were seen in the Emergency Department and that we asked that you be seen for follow-up. We will electronically transmit a record of today's note if your PCP is in our system *If you do not have a primary care provider please contact [phone] to establish care with one of the [facility] primary care providers. *Return to Emergency Department if you should have any new, worsening or concerning symptoms, such as [fever greater than 101F, chills, worsening pain, persistent vomiting or other bothersome symptoms] Prescriptions: New hydrocodone-acetaminophen 5-325 mg tablet 1 tab PO Q4-6H PRN (Reason: pain) Qty: 14 0RF polyethylene glycol 3350 [Miralax] 17 gram/dose powder 17 g PO DAILY PRN (Reason: constipation) Qty: 119 0RF Rx Instructions: Please take once daily while on opiate medications omeprazole 20 mg capsule,delayed release(DR/EC) 20 mg PO DAILY 14 Days Qty: 20 0RF No Action finasteride 5 mg tablet 5 mg PO DAILY Qty: 30 0RF losartan-hydrochlorothiazide 100-12.5 mg tablet 1 tab PO DAILY 0RF melatonin 1 mg tablet 1 mg PO BEDTIME PRN0RF multivitamin [Daily Multi-Vitamin] Tablet 1 tab PO DAILY 0RF tamsulosin [Flomax] 0.4 mg capsule 0.8 mg PO DAILY Qty: 90 0RF Rx Instructions: In the morning, 30 minutes after eating breakfast. Referrals: Callum Jain MD [Primary Care Provider] - Macario Montes De Oca MD [Physician] - 5-7 days <Jensen Christianson DO - Last Filed: 10/13/21 09:24> [facility] Attestation: I was immediately available in the department for consultation. This documentation has been reviewed and I agree with assessment and plan. Supervised by Jensen Christianson DO
--- NOTE | 2021-10-12 13:39 | PC.NURSE ---
patient has complaints of 8/10 abd pain in his RUQ. He states that he still have his gall bladder, he does not drink and has never had pancreatitis that he is aware of. He is having bowel movements and is passing gas. He complains of feeling nauseated and gagged this morning but no vomiting.
--- NOTE | 2021-10-12 13:53 | DI.US.S_ITS ---
PROCEDURE: US ABDOMEN LIMITED INDICATIONS: RUQ/EPIGASTRIC PAIN TECHNIQUE: Real-time focused scanning was performed of the abdomen, with image documentation. COMPARISON: None. FINDINGS: Liver is normal in size. Liver is diffusely echogenic. 8 millimeter gallbladder polyp noted. Gallbladder wall measures 2.0 millimeters. No pericholecystic fluid. Sonographic Becker sign reported. Biliary tree is nondilated. Biliary tree is at the upper limits of normal measuring 6.6 millimeters. Pancreas is obscured by bowel gas. IMPRESSION: 1. No sonographic evidence of cholelithiasis or cholecystitis. Sonographic Becker sign reported. If there is continued clinical concern for cholecystitis, a nuclear medicine HIDA scan should be considered for further evaluation. 2. Echogenic liver. Finding typically represents fatty infiltration; however, finding is nonspecific and correlation with clinical and laboratory findings is recommended to exclude other etiologies including hepatic cirrhosis. Dictated by: Jolanta Go MD, PhD on 10/12/2021 at 14:52 Approved by: Jolanta Go MD, PhD on 10/12/2021 at 14:53
[2021-10-12 14:19] LABS: Appearance Urine UA CLEAR; Bilirubin Urine UA NEGATIVE (NEGATIVE); Color Urine UA YELLOW; Glucose Urine UA NEGATIVE (Negative); Ketones Urine UA NEGATIVE (NEGATIVE); Leukocyte Esterase Urine UA NEGATIVE (NEGATIVE); Nitrite Urine UA NEGATIVE (Negative); Occult Blood Urine UA 1+ (Negative); Protein Urine UA 2+ (Negative); Specific Gravity Urine UA 1.015 (1.000-1.035); Urobilinogen Urine UA 0.2 E.U./dL (0.2); pH Urine UA 6.5 (4.5-8.0)
[2021-10-12] MEDS: cefTRIAXone 1,000 MG in SODIUM CHLORIDE 0.9% 100 ML 200 ML IV (14:23)
[2021-10-12] MEDS: KETOROLAC 30 MG/ML VIAL 15 MG IV (14:24)
[2021-10-12 14:25] LABS: Add Manual Diff / Slide Review NO; Basophils Absolute Auto 0 /uL (0-100); Basophils Percent Auto 0.2 % (0-2); Eosinophils Absolute Auto 0 /uL (0-450); Eosinophils Percent Auto 0.4 % (2-4); Hematocrit 43.6 % (41-53); Hemoglobin 15.5 g/dL (13.5-17.5); Lymphocytes Absolute Auto 800 /uL (1100-4500); Mean Corpuscular HGB Conc 35.5 % (30-36); Mean Corpuscular Hemoglobin 32.7 PG (26-34); Mean Corpuscular Volume 92.3 fL (80-100); Monocytes Absolute Auto 1000 /uL (0-900); Monocytes Percent Auto 13.2 % (3-14); Neutrophils Absolute Auto 6100 /uL (1500-7000); Neutrophils Percent Auto 76.2 % (50-75); Platelet Count 218 X10^3/uL (150-400); Red Blood Cell Count 4.73 X10^6/uL (4.5-5.9); Red Cell Distribution Width 13.3 % (11.6-14.8); White Blood Cell Count 7.9 X10^3/uL (4.5-11.0)
[2021-10-12 14:27] LABS: RBC Urine 5-10/HPF (0-5/HPF); Squamous Epithelial Cell Urine 0-1 /HPF (0-5/HPF); WBC Urine 0-1/HPF (0-5/HPF)
[2021-10-12 14:28] LABS: Bacteria Urine None Seen; Culture Indicated Urine Cult Not Indicated
[2021-10-12 14:37] LABS: Alanine Aminotransferase 403 IU/L (<50); Albumin 4.3 g/dL (3.5-5.0); Albumin Globulin Ratio 1.3 (1.0-2.8); Alkaline Phosphatase 67 U/L (38-126); Aspartate Aminotransferase 660 IU/L (17-59); BUN Creatinine Ratio 13.3 (6-22); Bilirubin Total 2.2 mg/dL (0.2-1.3); Blood Urea Nitrogen 15 mg/dL (9-20); Calcium 9.2 mg/dL (8.4-10.2); Carbon Dioxide 25 mmol/L (22-32); Chloride 103 mmol/L (98-107); Estimated Glomerular Filt Rate > 60.0 mL/min (>60); Globulin 3.4 g/dL (1.7-4.1); Glucose 153 mg/dL (80-110); HEMOLYSIS 18 (0-50); Lipase 91 U/L (23-300); Potassium 3.4 mmol/L (3.4-5.1); Sodium 138 mmol/L (137-145); Total Protein 7.7 g/dL (6.3-8.2)
--- NOTE | 2021-10-12 14:51 | DI.CT.S_ITS ---
PROCEDURE: CT ABDOMEN PELVIS W CON INDICATIONS: epigastric pain, no kayla etiology on us, +ruq pain/tenderness TECHNIQUE: After the administration of oral and IV contrast, axial sections were acquired from the lung bases to the pubic symphysis. Coronal and sagittal reformats were performed. For radiation dose reduction, the following was used: automated exposure control, adjustment of mA and/or kV according to patient size. COMPARISON: [facility], US, US ABDOMEN LIMITED, 10/12/2021, 14:28. FINDINGS: Image quality: Excellent. Lung bases: Unremarkable. A small hiatal hernia is incidentally noted. Heart: No significant findings. ABDOMEN: Liver: The liver is normal in size and demonstrates no suspicious lesions. Diffuse fatty liver infiltration is noted. Gallbladder: The liver is prominent in size, without additional CT abnormalities seen. Biliary ducts: Unremarkable. Pancreas: Unremarkable. Spleen: Unremarkable. Adrenal Glands: There is a right adrenal nodule seen that measures 1.5 cm, as on series 2, image 19. On this postcontrast study, this measures 27 Hounsfield units. Thickening of the left adrenal gland is seen, yet without focal nodules. Kidneys and Ureters: Along the lateral aspect of the right kidney, there is an exophytic simple cyst that measures water density and 1.3 cm. Kidneys demonstrate normal size and enhance symmetrically. There is no hydronephrosis. Stomach and Bowel: Stomach, small bowel loops, and colon are unremarkable. Distal colonic diverticulosis is seen, without findings of active diverticulitis. Peritoneum: No abnormal intraperitoneal fluid. No free air. Ventral Wall: No hernia. Abdominal Nodes: No retroperitoneal or mesenteric adenopathy by size criteria. Vessels: Aorta and inferior vena cava are normal in size. Atherosclerotic calcification is noted. PELVIS: Pelvic Organs: The prostate is enlarged, measuring at least 7.5 cm. Bladder: A Barrera catheter is seen within a decompressed bladder. The bladder wall demonstrates moderate generalized thickening. Pelvic Nodes: No enlarged lymph nodes. Miscellaneous: No inguinal hernias are seen. Pelvic clips are seen. Bones: Degenerative changes are seen throughout, which are worst at the L5-S1 level. IMPRESSION: Prominent size of the gallbladder seen, yet without additional gallbladder abnormality seen by CT. Incidental note is made of: Small hiatal hernia Fatty liver infiltration Simple right renal cyst Diverticulosis, without active diverticulitis Focal L5-S1 degenerative change Postoperative pelvic clips Enlarged prostate Barrera catheter, with generalized bladder wall thickening Dictated by: Guy Leiva M.D. on 10/12/2021 at 14:39 Approved by: Guy Leiva M.D. on 10/12/2021 at 14:44
[2021-10-12] MEDS: ONDANSETRON 4 MG/2 ML INJ IV ×2 (14:57→18:52)
[2021-10-12] MEDS: HYDROCODONE/ACET 5/325 TABLET 1 TAB PO (14:57)
[2021-10-12] MEDS: PANTOPRAZOLE 40 MG VIAL IV (14:57)
[2021-10-12] MEDS: SODIUM CHLORIDE 0.9% 500 ML 1000 ML IV (15:00)
[2021-10-12] MEDS: LOSARTAN 25 MG TABLET PO (15:06)
[2021-10-12 15:29] LABS: Procalcitonin 0.14 ng/mL (<0.5)
--- NOTE | 2021-10-12 15:52 | DI.MRI.S_ITS ---
PROCEDURE: MR ABDOMEN WO CON INDICATIONS: +torres, concern for biliary obstruction, not evident on CT/ TECHNIQUE: Coronal HASTE through the abdomen, axial 2-D FLASH in- and [id number], and breath-hold T2 FSE with fat saturation through the biliary system and pancreas. Oblique coronal and axial thin-slice HASTE, radial thick-slab HASTE centered on the extrahepatic bile ducts. Intravenous secretin: Not requested. COMPARISON: [facility], CT, CT ABDOMEN PELVIS W CON, 10/12/2021, 15:30. [facility], US, US ABDOMEN LIMITED, 10/12/2021, 14:28. FINDINGS: Image quality: This examination is limited by involuntary motion artifact. The patient declined repeat images. Pancreas and biliary system: Fat stranding is again seen adjacent to the gallbladder. No definite gallstones are seen on these images. A likely nondependent gallbladder wall polyp can be seen. The gallbladder is prominent in size. No intrahepatic biliary ductal dilatation is seen. The common bile duct measures at the upper limits of normal at 7 mm. There is an abrupt cut off of the distal common bile duct, without smooth tapering. Pancreas is normal in morphology, without adjacent soft tissue edema. Pancreatic duct is normal in caliber, without developmental anomalies. Other solid organs: Liver is normal in size. Diffuse fatty liver infiltration can be seen. Spleen is normal in size. No adrenal nodules. Both kidneys are normal in size, without hydronephrosis. Nodes and vessels: No retroperitoneal or mesenteric adenopathy by size criteria. Aorta and inferior vena cava are normal in size. Bowel and peritoneum: Unenhanced bowel loops are normal in caliber. No free fluid. Lung bases: No basal pleural effusions. Heart size is normal. Bones and soft tissues: No ventral hernias. Bone marrow is of normal overall signal. IMPRESSION: Prominent gallbladder with fluid seen adjacent to the gallbladder. No definite gallstones are seen. The common bile duct measures at the upper limits of normal. The distal common bile duct demonstrates an abrupt cutoff, rather than a smooth taper. Concern is raised for a potential distal common duct stone. No stone can be seen at this site on the recent prior CT examination. If clinically appropriate, a follow-up ERCP could be considered for further evaluation. Incidental note is made of: Fatty liver infiltration Dictated by: Guy Leiva M.D. on 10/12/2021 at 16:50 Approved by: Guy Leiva M.D. on 10/12/2021 at 16:54
[2021-10-12] MEDS: HYDROMORPHONE 0.5 MG INJ IV (17:21)
[2021-10-12] MEDS: HYDROCODONE/ACET 5/325 PREPACK 1 BOTTLE MISC (18:52)
[2021-10-12] MEDS: ONDANSETRON 4 MG ODT PREPACK 1 BOTTLE MISC (18:52)
[2021-10-14 00:07] LABS: HBsAg Screen Negative (Negative); Hepatitis A Antibody IgM Negative (Negative); Hepatitis B Core Antibody IgM Negative (Negative); Hepatitis C Antibody <0.1 s/co ratio (0.0-0.9)
== END 2021-10-12 19:11 | disposition home or self-care (01) ==
PROVIDERS: Emergency Provider Nurse Practitioner Critical Care Medicine; PCP Family Medicine; Referring Provider Urology
DX: N40.1 Benign prostatic hyperplasia with lower urinary tract symptoms (principal); R33.8 Other retention of urine; R10.13 Epigastric pain; K82.8 Other specified diseases of gallbladder; K57.30 Diverticulosis of large intestine without perforation or abscess without bleeding; K76.0 Fatty (change of) liver, not elsewhere classified
CPT/HCPCS: 36415; 51702; 51798; 74177; 74181; 76705; 80053; 80074; 81001; 81003; 83690; 84145; 85025; 96365; 96366; 96375; 96376; 99284; 99285; C9113; J0696; J1170; J1885; J2405; Q9967

== ENCOUNTER → 2021-10-22 16:19 | Outpatient (CLI) | payer MEDICARE, OTHER, SELFPAY ==
--- NOTE | 2021-10-22 16:23 | DI.MRI.S_ITS ---
PROCEDURE: MR PELIS WO/W CON INDICATIONS: Rule out PI-RADS lesion TECHNIQUE: Coronal HASTE, axial T1 FSE with fat saturation, 3-plane nonbreath-hold T2 FSE. After the administration of contrast, dynamic axial, delayed axial and coronal VIBE or 2-D FLASH with fat saturation through the pelvis. Optional diffusion weighted imaging and ADC may be performed. COMPARISON: [facility], MR, MR ABDOMEN WO CON, 10/12/2021, 16:37. [facility], CT, CT ABDOMEN PELVIS W CON, 10/12/2021, 15:30. FINDINGS: Image quality: Diagnostic. Prostate: Gland size is 7.7 x 7.1 x 8.2 cm; ellipsoid gland volume is 233 mL. There is diffuse heterogeneous enlargement predominantly involving the transition zone. Lesion size(s): Lesion 1: 1.4 x 0.7 x 0.6 cm. Lesion 2: 7.9 x 0.7 cm in the axial plane. Lesion location(s) (sector): Lesion 1: Right anterior transition zone at the prostatic base. Lesion 2: Right posterior lateral transition zone at mid prostate level. Lesion description: Lesion 1: There is an oval moderately T2 hypointense lesion with indistinct margins. No evidence of extraprostatic extension. Lesion 2: There is an oval mildly T2 hypointense lesion with partially circumscribed and indistinct margins. T2 weighted imaging (T2WI) morphology score: Lesion 1: 4 Lesion 2: 2 Diffusion weighted imaging (DWI) morphology score: Lesion 1: 4 Lesion 2: 3 Dynamic contrast enhancement (DCE): Lesion 1: Present. Lesion 2: Present. Lesion PI-RADS score: Lesion 1: PI-RADS 4 Lesion 2: PI-RADS 2 Genitourinary system: There is a Barrera catheter present within a nondistended urinary bladder. The bladder wall demonstrates thickening and trabeculation consistent with sequelae of chronic bladder outlet obstruction. Distal ureters are non distended. Bowel and peritoneum: No pathologic free pelvic fluid. Inferior colon and small bowel loops are normal in caliber. Nodes and vessels: No pelvic or inguinal adenopathy by size criteria. Iliac vessels are normal in caliber. Soft tissues: No inguinal hernias. Bones: Visualized osseous structures demonstrate no suspicious focal lesions. IMPRESSION: 1. PI-RADS 4 lesion demonstrated in the right anterior transition zone at the prostatic base. Finding is at high suspicion for clinically significant prostate cancer. 2. PI-RADS 2 lesion with mild restricted diffusion also demonstrated the right transition zone likely reflects a BPH nodule. 3. Marked heterogeneous enlargement of the prostate with findings consistent with chronic bladder outlet obstruction. Barrera catheter demonstrated within a decompressed urinary bladder. 4. No pelvic lymphadenopathy by size criteria. Dictated by: Simon Valencia M.D. on 10/23/2021 at 10:56 Approved by: Simon Valencia M.D. on 10/23/2021 at 11:13
== END ==
PROVIDERS: PCP Family Medicine; Referring Provider Urology; Visit Provider Urology
DX: N40.1 Benign prostatic hyperplasia with lower urinary tract symptoms (principal); N42.9 Disorder of prostate, unspecified; R33.8 Other retention of urine; R97.20 Elevated prostate specific antigen [PSA]; R39.9 Unspecified symptoms and signs involving the genitourinary system; N39.43 Post-void dribbling
CPT/HCPCS: 72197; 99214; A9579

== ENCOUNTER → 2021-12-24 13:42 | Outpatient (CLI) | payer MEDICARE, OTHER, SELFPAY | PROVIDERS: PCP Family Medicine; Visit Provider Urology | DX: R30.0 Dysuria (principal); R97.20 Elevated prostate specific antigen [PSA] | CPT/HCPCS: 51702; 55700; 76942; 87086; 96372; J1580 ==

== ENCOUNTER → 2022-01-23 14:46 | Outpatient (CLI) | payer MEDICARE, OTHER, SELFPAY | PROVIDERS: PCP Family Medicine; Visit Provider Urology | DX: R30.0 Dysuria (principal); R33.8 Other retention of urine | CPT/HCPCS: 51702; 87077; 87086; 87186 ==

== ENCOUNTER → 2022-02-23 10:20 | Outpatient (CLI) | payer MEDICARE, OTHER, SELFPAY | PROVIDERS: Family Provider Family Medicine; PCP Family Medicine; Visit Provider Specialist | DX: R30.0 Dysuria (principal); R33.9 Retention of urine, unspecified | CPT/HCPCS: 51702; 87077; 87086; 87186 ==

== ENCOUNTER → 2022-03-26 10:17 | Outpatient (CLI) | payer MEDICARE, OTHER, SELFPAY | PROVIDERS: Family Provider Family Medicine; PCP Family Medicine; Visit Provider Specialist | DX: R33.9 Retention of urine, unspecified (principal); Z97.8 Presence of other specified devices | CPT/HCPCS: 51702; 87077; 87086; 87186 ==

== ENCOUNTER → 2022-04-01 10:10 | Outpatient (CLI) | payer MEDICARE, OTHER, SELFPAY ==
--- NOTE | 2022-04-01 10:25 | DI.CT.S_ITS ---
PROCEDURE: CT SOFT TISSUE NECK W CON INDICATIONS: LOCALIZED SWELLING, MASS LUMP, NECK TECHNIQUE: After the administration of intravenous contrast, 3.0 mm axial sections acquired from the sella to the aortic arch. Additional oblique axial 3.0 mm sections acquired through the pharynx. 3 mm thick coronal and sagittal reformats were generated. For radiation dose reduction, the following was used: automated exposure control. COMPARISON: None. FINDINGS: Image quality: Excellent. Lymph nodes: The area of palpable concern is marked. Deep to this site, there is an enlarged lymph node on the left at level 2A that measures 17 x 15 mm, as on series 2, image 49. Borderline prominent lymph nodes are seen elsewhere. Vessels: Visualized vasculature appears patent. Neck spaces: The oropharynx, nasopharynx, and pharynx demonstrate no mucosal lesions. The vocal cords, false vocal cords, pyriform sinuses, epiglottis, vallecula, and tongue base all appear normal. Extramucosal spaces appear unremarkable. Glands: The parotid and submandibular glands appear normal. Thyroid gland demonstrates left-sided nodules that measure up to 1.2 cm. Miscellaneous: Visualized brain and orbits appear normal. Lung apices appear clear. Superficial soft tissues appear normal. Bones: No suspicious bony lesions. Visualized sinuses and mastoids appear unremarkable. At least moderate cervical spine degenerative change can be seen. IMPRESSION: There is a solitary enlarged lymph node seen at the site of clinical concern at level 2A on the left. - ENT consultation is recommended. No primary mucosal mass can be seen. Left-sided thyroid nodules are seen that measure up to 1.7 cm. - Please now consider a dedicated thyroid ultrasound for further evaluation. Dictated by: Guy Leiva M.D. on 04/01/2022 at 12:33 Approved by: Guy Leiva M.D. on 04/01/2022 at 12:36
[2022-04-01 11:05] LABS: BUN Creatinine Ratio 15.9 (6-22); Blood Urea Nitrogen 18 mg/dL (9-20); Estimated Glomerular Filt Rate > 60 mL/min (>60)
[2022-04-02 07:09] LABS: PSA Free % 21.8 % (.); PSA, Total 16.7 ng/mL (0.0-4.0)
== END ==
PROVIDERS: Urology; Family Provider Family Medicine; PCP Family Medicine; Referring Provider Internal Medicine Cardiovascular Disease; Visit Provider Internal Medicine Cardiovascular Disease
DX: R59.0 Localized enlarged lymph nodes (principal); E04.2 Nontoxic multinodular goiter; R97.20 Elevated prostate specific antigen [PSA]
CPT/HCPCS: 36415; 70491; 82565; 84153; 84154; 84520; Q9967

== ENCOUNTER → 2022-04-24 09:13 | Outpatient (CLI) | payer OTHER, SELFPAY | PROVIDERS: Family Provider Family Medicine; PCP Family Medicine; Visit Provider Specialist | DX: N13.8 Other obstructive and reflux uropathy (principal); N40.1 Benign prostatic hyperplasia with lower urinary tract symptoms; R33.8 Other retention of urine; R33.9 Retention of urine, unspecified; R39.9 Unspecified symptoms and signs involving the genitourinary system | CPT/HCPCS: 87077; 87086; 87186 ==

== ENCOUNTER → 2022-05-22 09:28 | Outpatient (CLI) | payer OTHER, SELFPAY | PROVIDERS: Family Provider Family Medicine; PCP Family Medicine; Visit Provider Urology | DX: N40.1 Benign prostatic hyperplasia with lower urinary tract symptoms (principal); N13.8 Other obstructive and reflux uropathy; Z97.8 Presence of other specified devices | CPT/HCPCS: 51702; 87077; 87086; 87186 ==

== ENCOUNTER 2022-06-01 06:14 | Inpatient (IN) | payer OTHER, SELFPAY ==
[2022-06-01] VITALS (20 sets, daily range): BP systolic 78–150; BP diastolic 37–71; PULSE 74–92; RESP 12–19; TEMP 36.2–36.8; O2SAT 91–97; BMI 31.2
--- NOTE | 2022-06-01 | PATH_ITS ---
[facility] Accession Number: [id number] No. of containers..02 Tissue . 01 Material submitted: . PART A: body - SCAR GROSS ONLY/ NO SITE DESIGNATED PART B: prostate - PROSTATE . 01 Clinical history: . A)GROSS ONLY . 01 Diagnosis: A. Specimen Designated Scar, Gross Only: Skin and underlying fibrous tissue, consistent with scar (for gross examination only, per requisition). . B. Prostate (143.0 grams), Transurethral Resection: Benign prostatic hyperplasia. No evidence of malignancy in the sections submitted. MRV 06/03/2022 1635 Local . 01 Electronically signed: . Radha Huddleston MD, Pathologist NPI- [id number] . 01 Gross description: . A. Received in formalin labeled with the patient's name, and scar, and consists of an unoriented ellipse of cabezas wrinkled skin measuring 10.1 x 1.0 cm and excised to a depth of 0.7 cm. The cutaneous surface is significant for a linear indurated area running the length of the specimen consistent with scar. The margin is inked blue. The specimen is serially sectioned to reveal a yellow to white unremarkable cut surface. No sections are submitted as specimen is for gross examination only per the requisition. . B. Received in formalin labeled with the patient's name, and prostate, and consists of a disrupted fragmented prostate weighing 143 grams and aggregating to 9.4 x 8.3 x 6.5 cm. Sectioning reveals a yellow to cabezas nodular firm cut surface with cystic areas measuring up to 0.5 cm in greatest dimension filled with rivera-cabezas semi-solid material. No discrete lesions are identified. Pattern Setter sections to include nodular and cystic areas are submitted in cassettes B1-B8. ([id number]) /MRV 06/03/2022 1635 Local . 01 Pathologist provided ICD-10: N40.0 . 01 CPT . 483752, [id number] Specimen Comment: A courtesy copy of this report has been sent to [phone] Performed at: 01 [facility] [address] [place] [address], [place], [place] [id number] MD Simon Dimas MD Phone: [phone]
[2022-06-01] MEDS: LACTATED RINGERS 1,000 ML 21 ML IV ×2 (07:20→09:58)
--- NOTE | 2022-06-01 07:25 | PM.PREOP ---
Pre-operative Note COVID-19 Criteria for continued procedure: Expected advancement of disease process, Increased loss of function, Continuing or worsening of significant or severe pain, Deterioration of the patient's condition or overall health and Delay expected to result in less-positive ultimate med/surg outcome Interval Note History & Physical reviewed/Exam performed by Physician: Yes Changes to H&P: No
[2022-06-01 07:29] LABS: COVID19 -Nasal RAPID Negative (Negative)
[2022-06-01] MEDS: AMPICILLIN/SULBACTAM 3 GM 3 GM in SODIUM CHLORIDE 0.9% 100 ML IV ×2 (07:58→11:19)
[2022-06-01 08:16] LABS: Hematocrit 42.9 % (41-53); Hemoglobin 14.7 g/dL (13.5-17.5)
[2022-06-01] MEDS: GENTAMICIN 160 MG in SODIUM CHLORIDE 0.9% 100 ML 104 MG IV (08:21)
[2022-06-01 08:22] LABS: BUN Creatinine Ratio 11.5 (6-22); Blood Urea Nitrogen 14 mg/dL (9-20); Calcium 8.6 mg/dL (8.4-10.2); Carbon Dioxide 26 mmol/L (22-32); Chloride 103 mmol/L (98-107); Estimated Glomerular Filt Rate > 60 mL/min (>60); Glucose 115 mg/dL (80-110); HEMOLYSIS < 15 (0-50); Potassium 3.3 mmol/L (3.4-5.1); Sodium 138 mmol/L (137-145)
[2022-06-01] MEDS: TRANEXAMIC ACID 1,000 MG in SODIUM CHLORIDE 0.9% 100 ML 200 MG IV (08:38)
[2022-06-01] MEDS: ACETAMINOPHEN IV 1,000 MG/100 ML VIAL 400 MG IV (08:43)
--- NOTE | 2022-06-01 09:03 | SUR.OPER ---
Catheter to leg bag drainage in place on arrival to OR, removed balloon intact, 150 ml urine emptied.
--- NOTE | 2022-06-01 09:06 | SUR.OPER ---
Supine on padded OR bed, head on pillow, arms secured on padded arm boards at <90 degrees abduction, legs uncrossed, pillow under knees, safety belt at thigh, tape over blanket over lower legs, iliac crest at table break.
[2022-06-01] MEDS: BUPIVACAINE LIPOSOME 266 MG/20 ML VIAL INJ (09:45)
[2022-06-01] MEDS: BUPIVACAINE 0.25% (PF) 30 ML, EPINEPHrine 0.15 MG INJ (09:47)
[2022-06-01] MEDS: GENTAMICIN 160 MG IRR (09:49)
[2022-06-01] MEDS: SODIUM CHLORIDE 0.9% IRR (09:49)
[2022-06-01] MEDS: METHYLENE BLUE 50 MG/10 ML VIAL 95 MG IV (10:16)
--- NOTE | 2022-06-01 11:10 | P.OP_ITS ---
Operative Date/Time/Diagnoses Date of procedure: 06/01/22 Time of procedure: 11:00 Pre-op diagnosis: 1. Urinary retention. 2. Failure medical therapy and multiple voiding trials. Post-op diagnosis: same Procedure & Clinicians Procedure: 1. Simple open prostatectomy. 2. Scar excision. Same procedure as scheduled: Yes Indications: 1. Urinary retention. 2. Failure medical therapy and multiple voiding trials. Surgeon: Joan Kwong Companion Caregiver: Kala Ayon Click Yes if Unassisted: No Anesthesia Type: General, Spinal (Duramorph) and Local (1.33 % Exparel +0.25% Marcaine with epinephrine.) Operative Notes Findings: 1. Well-healed laparotomy scar extending approximately three-vessel above the pubic symphysis. 2. Bladder-2+ trabeculation with cellule formation. Ureteral orifices were noted bilaterally prior to circumferential incision of the bladder neck. Positioned and presence of the orifices were confirmed post prostate removal under direct visualization and with use of indigo carmine. 3. Markedly enlarged and nodular prostate adenoma. There was adherence of the adenoma in the vicinity of the right lateral and posterior apex. These portions were removed piecemeal after successful removal of the vast majority of the adenoma that was intact. Closure Type: primary Specimen(s): other (1. Prostate adenoma. 2. Cutaneous scar. ) Applied: catheter (Twenty-two Jordanian to a hematuria catheter.) and drain(s) (Fifteen Jordanian fenestrated Benson drain bulb self suction.) Estimated Blood Loss (mL): 250 Blood products transfused: none Procedure in detail: The patient was positioned supine the lower abdomen, genitalia, and groin were then prepped and draped in sterile fashion a 20 Jordanian Barrera catheter was then inserted into the bladder, the balloon inflated 20 cc, and bladder contents drained. A specimen was obtained for urinalysis and reflex culture. The bladder was then filled with approximately 240 cc of sterile saline and the catheter temporarily clamped. A midline infraumbilical/suprapubic incision was then made included a portion of the well-healed midline laparotomy incision. This portion of the scar was excised and submitted to pathology for gross only. The layers of the midline abdominal wall fat rectus fascia was then divided using cautery and sharp technique. The hiatus between the rectus sheath was then identified and opened along its length using blunt and cautery technique. Retractors were positioned appropriately with exposure of the partially filled bladder. A corporate since solution of Marcaine with epinephrine was then used to infiltrate the midline bladder wall. Midline cystotomy was then created using cautery technique. Retractors were then repositioned to allow exposure the inner bladder and bladder neck with the findings as described above. There is some moderate intravesical protrusion of median lobe and generalized bladder hyperemia. Bilateral orifices were identified and the circumferential incision was conducted approximately 1 cm distal to the trigone apex. A solution of 0.25% Marcaine with epinephrine was then used to infiltrate the mucosa and subcutaneous tissue circumferentially around the bladder neck to include the protruding median lobe. The cautery pen was then used to divide the mucosa circumferentially. Cautery pen was used to further divide smooth muscle fibers at the junction of the bladder neck and prostate base circumferentially. The appropriate plane was developed the surface of the adenoma and meticulous and painstaking blunt and cautery dissection were continue to eventually deliver the adenoma enlarged part intact. Careful inspection of the remaining prostate fossa revealed several nodules adherent to the fibromuscular fascia the capsule distally, posteriorly into the right lateral. These were removed individually and submitted with the main specimen to pathology for routine gross and microscopic examination. The the fossa was then packed with a lap sponge and pressure was applied for approximately 5 minutes. Indigo carmine was administered by anesthesia at my request. Confirmation of position and patency of the bilateral ureteral orifices was then conduct under direct visualization. A 0.35 glide wire was also utilized to cannulate each opening. The margins of the bladder neck mucosa was then repaired from 12:00 to approximately 4:00 o'clock and from approximatel y 8:00 to 12:00 o'clock, utilizing interrupted [id number] 2-0 PDS[address] A [address] hematuria catheter was then advanced lower urinary tract over a catheter guide and direct visualization. The tip was positioned within the bladder lumen. The anterior midline cystotomy was then closed in 2 layers by 1st utilizing in inner, mucosal muscle layer with 3-0 Monocryl. This was done in running fashion. The 2nd layer was performed using a 2-0 Monocryl and Lembert mattress technique. The catheter balloon was inflated to 20 cc. It was irrigated to light pink without clots. A 15 Jordanian fenestrated Benson drain was then placed in the space of Retzius adjacent to the midline cystotomy and brought out through a separate stab incision to the right of the midline incision. This was secured to the skin with 2-0 silk utilizing a Gopi sandal technique in usual fashion. Next, diluted Exparel was utilized to infiltrate the incisional skin and fascial layer. The fascia was then closed using 0 PDS starting at each the superior, and the inferior apex in using a running technique meeting in approximate midline of the incision and tying 1 another together. The subcutaneous Juan's fascia was then reapproximated using running 2-0 Vicryl. The skin was reapproximated using a running subcuticular 4- 0 Monocryl. The skin surface was cleaned and dried. Small Telfa gauze was utilized to dress the drain site and the midline incision. Over each of the sites a transparent Op site was applied for finish. The patient was then awakened, transferred to [facility], and transported recovery in stable condition. Complications: none Post-operative Condition: stable Disposition: PACU Plan for aftercare: Admit to acute care.
--- NOTE | 2022-06-01 13:26 | PC.NURSE ---
Patient brought up from PACU to room 219, oriented to room and call light. His and son to bedside. Patient is awake and talkative, oriented and appropriate. Denies pain. Barrera in place. Bulb drain in place. Continue to monitor.
[2022-06-01 13:50] LABS: Appearance Urine UA CLOUDY; Bilirubin Urine UA NEGATIVE (NEGATIVE); Color Urine UA YELLOW; Glucose Urine UA NEGATIVE (Negative); Ketones Urine UA NEGATIVE (NEGATIVE); Leukocyte Esterase Urine UA 3+ (NEGATIVE); Nitrite Urine UA POSITIVE (Negative); Occult Blood Urine UA 3+ (Negative); Protein Urine UA 2+ (Negative); Specific Gravity Urine UA 1.015 (1.000-1.035); Urobilinogen Urine UA 0.2 E.U./dL (0.2)
[2022-06-01] MEDS: cefTRIAXone 1,000 MG in SODIUM CHLORIDE 0.9% 100 ML 200 MG IV (14:02)
[2022-06-01] MEDS: LACTATED RINGERS 1,000 ML 125 ML IV ×2 (14:03→21:58)
[2022-06-01 14:07] LABS: Bacteria Urine None Seen; Culture Indicated Urine Specimen Cultured; RBC Urine 5-10/HPF (0-5/HPF); Squamous Epithelial Cell Urine 0-1 /HPF (0-5/HPF); WBC Urine 30-100/HPF (0-5/HPF)
[2022-06-01] MEDS: ACETAMINOPHEN 325 MG TABLET 650 MG PO ×2 (17:22→21:57)
[2022-06-02 00:51] VITALS: BP 117/52; PULSE 85; RESP 18; TEMP 37; O2SAT 93
[2022-06-02 04:01] VITALS: BP 124/56; PULSE 75; RESP 18; TEMP 37; O2SAT 93
[2022-06-02] MEDS: ACETAMINOPHEN 325 MG TABLET 650 MG PO (05:42)
[2022-06-02] MEDS: LACTATED RINGERS 1,000 ML 125 ML IV (05:43)
--- NOTE | 2022-06-02 07:38 | P.PN_ITS ---
Subjective Subjective Date Patient Seen: 06/02/22 Time Patient Seen: 07:38 Interval history: The patient is a 81-year-old male admitted on 06/01/2022 for scheduled SIMPLE OPEN PROSTATECTOMY for urinary retention and failure of medical therapy and multiple voiding trials. Preoperative prostate volume was calculated at 235 cc. The patient reports a overall restful night other than interruption of sleep due to sequential compression devices. He is passing gas and tolerating p.o. diet. He has not yet required narcotic analgesic. Exam Vital Signs (past 8 hours): - 06/02/22 00:51 06/02/22 04:01 Temperature 98.6 F 98.6 F Pulse Rate 85 75 Respiratory Rate 18 18 Blood Pressure 117/52 L 124/56 L Pulse Oximetry 93 93 Oxygen Flow Rate 0 0 Fraction of Inspired Oxygen 28 SaO2/FiO2 Ratio 342 Oxygen Delivery Method Nasal Cannula Oxygen Flow Rate 0 Narrative Exam Narrative: The patient is sitting upright in bed and in no distress. Chest-equal and unlabored expansion bilaterally. Heart-normal sinus rhythm. Abdomen-dressing and KARI drain intact. The drain has small amount blood-tinged serosanguineous output without clot. Genitalia -intact and indwelling catheter to gravity drainage. Outflow is light earlier in without clot. Extremities no pallor, edema, or cyanosis. Objective Labs Result Diagrams: 06/01/22 07:47 06/01/22 07:47 Labs: Laboratory Results - last 24 hr 06/01/22 06/01/22 06/01/22 07:47 07:47 07:47 Hgb 14.7 Hct 42.9 Sodium 138 Potassium 3.3 L Chloride 103 Carbon Dioxide 26 BUN 14 Creatinine 1.22 Estimated GFR > 60 BUN/Creatinine Ratio 11.5 Glucose 115 H Calcium 8.6 Urine Color Urine Appearance Urine pH Ur Specific Montfort Urine Protein Urine Glucose (UA) Urine Ketones Urine Occult Blood Urine Nitrate Urine Bilirubin Urine Urobilinogen Ur Leukocyte Esterase Urine RBC Urine WBC Ur Squamous Epith Cells Urine Bacteria Ur Culture Indicated? Blood Type A Negative Antibody Screen Negative 06/01/22 08:39 Hgb Hct Sodium Potassium Chloride Carbon Dioxide BUN Creatinine Estimated GFR BUN/Creatinine Ratio Glucose Calcium Urine Color Yellow Urine Appearance Cloudy Urine pH 7.0 Ur Specific Montfort 1.015 Urine Protein 2+ H Urine Glucose (UA) Negative Urine Ketones Negative Urine Occult Blood 3+ H Urine Nitrate Positive H Urine Bilirubin Negative Urine Urobilinogen 0.2 Ur Leukocyte Esterase 3+ H Urine RBC 5-10/hpf H Urine WBC 30-100/hpf H Ur Squamous Epith Cells 0-1 /hpf Urine Bacteria None seen Ur Culture Indicated? Specimen cultured Blood Type Antibody Screen PFSH Medical History Arthritis Arthritis BPH (benign prostatic hyperplasia) BPH w urinary obs/LUTS Chronic indwelling Barrera catheter Coronary heart disease Diverticular disease Elevated PSA Hearing impaired Heart attack High blood pressure History of nephrolithiasis Kidney stones Lower urinary tract symptoms Memory changes Myocardial infarction (~2004) Seasonal allergies Swelling of lymph node (03/31/22) Thyroid nodule Urinary retention Urinary retention due to benign prostatic hyperplasia Surgical History History of appendectomy History of cardiac cath (~2018) History of colon surgery History of extraction of renal calculus History of prostate biopsy Hx of bilateral cataract extraction Hx of oral surgery Family History Father BPH (benign prostatic hyperplasia) Coronary artery disease HI (hearing impairment) Mother Hyperlipidemia Hypertension Social History marital status: number of children: 4 household members: spouse Smoking Status: Never smoker alcohol intake: never caffeine: Yes Type(s) of exercise: walking frequency: daily duration: 15-30 minutes/day Assessment & Plan Assessment and plan (1) Urinary retention: Status: Acute (2) BPH w urinary obs/LUTS: Status: Acute Plan 1. Increase and advance diet and activity. 2. Pathology pending. Reviewed pathology with patient when final. Time Spent With Patient Critical Care time: I spent a total of [] minutes of critical care time on this patient's care today; this time is exclusive of procedural time. Quality VTE Deep Vein Thrombosis/Pulmonary Embolism Present on Admission: No
[2022-06-02 09:01] VITALS: BP 161/71
[2022-06-02] MEDS: LOSARTAN 50 MG TABLET 100 MG PO (09:01)
[2022-06-02] MEDS: ENOXAPARIN 40 MG/0.4 ML SYRINGE SUBCUT (09:01)
[2022-06-02] MEDS: hydroCHLOROthiazide 25 MG TABLET 12.5 MG PO (09:02)
[2022-06-02] MEDS: BISACODYL 10 MG SUPP PR (09:02)
[2022-06-02] MEDS: OXYCODONE IR 5 MG TABLET PO ×3 (09:03→16:46)
[2022-06-02] MEDS: MULTIVITAMIN 1 TABLET 1 TAB PO (09:03)
[2022-06-02] MEDS: TAMSULOSIN 0.4 MG CAPSULE 0.8 MG PO (09:03)
[2022-06-02 09:11] VITALS: BP 161/71; PULSE 80; RESP 15; TEMP 36.8; O2SAT 95
[2022-06-02] MEDS: cefTRIAXone 1,000 MG in SODIUM CHLORIDE 0.9% 100 ML 200 MG IV (12:35)
--- NOTE | 2022-06-02 14:24 | CM.DANOTE ---
Initial DCP Assessment Note Pt is a 81 yo male, resident of [place], POD1 from SIMPLE OPEN PROSTATECTOMY by Dr Kwong PCP: Callum Jain Payer: [employer] Reviewed chart, met w/patient, spouse and adult dtr at bedside, introduced self and role. Patient is indp and active at baseline and eager to return home when medically cleared, expected to be tomorrow 11.30.22 Patient and family appreciative for the visit and deny needs from this GARBAGE MAN at this time. No barriers identified at this time to patient's safe discharge home w/family to assist; close outpatient f/u recommended. NAYE Rivas Discharge Planning/Care Management CM Discharge Assessment Start: 06/02/22 14:23 Freq: Status: Active Protocol: Document 06/02/22 14:23 DEYA (Rec: 06/02/22 14:24 DEYA [id number]) Discharge Planning Assessment Assigned Food Counter Worker NAYE Finn DPOA/Assigned Designee Name Doris Lipscombyce Harpreet, spouse Contact Information [phone] Advance Directives? Yes Advance Directives on File No History Provided By Patient,Significant Other, Medical Record Prior Living Arrangements House Household Members spouse Type of transporation used prior to Drives own vehicle admit Independent with ADL's Yes Is patient alert and oriented? Yes Barriers to Discharge No Comment Home w/supportive spouse and dtr Discharge Plan Home Transportation Arrangement family Referrals Initiated None needed
[2022-06-02 17:00] VITALS: BP 167/56; RESP 18; O2SAT 94
[2022-06-02 19:50] VITALS: BP 167/73; PULSE 68; RESP 18; TEMP 36.7; O2SAT 96
[2022-06-02] MEDS: HYDROMORPHONE 0.5 MG INJ IV (20:06)
[2022-06-02] MEDS: SODIUM CHLORIDE 0.9% FLUSH 10 ML IV (20:07)
--- NOTE | 2022-06-02 20:28 | PC.NURSE ---
Patient is alert and oriented; KOBUK. Breath sounds CTA with RA sat of 96%. HRR. BP has been trending high most of today and was 167/73 at last vitals check. Denies nausea. BT hypoactive but reports flatus and had small BM earlier today after being given suppository. Abdomen is soft and non tender. Complains of pulling/pressure like, 8/10, incisional pain so medicated with IV Dilaudid. Dressing to incision with moderate amount serosanguinous drainage. Dressing around drain site is CDI. Drain is intact but will not hold compression. Is independent with mobility. Refuses to wear SCD's as stated he was unable to sleep last night because of them. Indwelling catheter intact with hematuria noted; urine is cloudy, dark red and small clots noted. Fall risk score is low.
[2022-06-03] MEDS: HYDROMORPHONE 0.5 MG INJ IV (00:51)
[2022-06-03] MEDS: SODIUM CHLORIDE 0.9% FLUSH 10 ML IV ×2 (00:52→08:29)
[2022-06-03] MEDS: OXYCODONE IR 5 MG TABLET PO (03:40)
[2022-06-03 06:00] VITALS: BP 138/62; PULSE 78; RESP 18; TEMP 37.1; O2SAT 94
[2022-06-03] MEDS: BISACODYL 10 MG SUPP PR (08:27)
[2022-06-03 08:28] VITALS: BP 138/62
[2022-06-03] MEDS: ENOXAPARIN 40 MG/0.4 ML SYRINGE SUBCUT (08:28)
[2022-06-03] MEDS: hydroCHLOROthiazide 25 MG TABLET 12.5 MG PO (08:28)
[2022-06-03] MEDS: LOSARTAN 50 MG TABLET 100 MG PO (08:28)
[2022-06-03] MEDS: TAMSULOSIN 0.4 MG CAPSULE 0.8 MG PO (08:29)
[2022-06-03] MEDS: MULTIVITAMIN 1 TABLET 1 TAB PO (08:29)
[2022-06-03 09:50] VITALS: BP 153/72; PULSE 81; RESP 16; TEMP 37.9; O2SAT 95
--- NOTE | 2022-06-03 10:35 | P.DS_ITS ---
History of Present Illness History of Present Illness Date Patient Seen: 06/03/22 Time Patient Seen: 10:10 Chief complaint: SIMPLE OPEN PROSTATECTOMY Narrative: The patient is a 81-year-old gentleman that was admitted on 06/01/2022 for scheduled simple open prostatectomy for urinary retention and failure medical therapy and voiding trials. His postoperative course was unremarkable 80 tolerated general diet, and return of bowel function, and was able to ambulate without assistance by the morning of the 1st postoperative day. Barrera catheter care and use instruction for provided prior to discharge. The patient was instructed in proper administration of enoxaparin subcutaneously prior to discharge. Postoperative activity, hygiene, and driving re strictions/instructions were discussed with he and and daughter. On the morning 06/03/2022 the patient was stable for discharge. Pathology was pending at discharge. Discharge Providers Provider Date of admission: 06/01/22 06:14 Discharge Date: 06/03/22 Primary care physician: Callum Jain MD Discharge provider: Joan Kwong MD Summary Hospital Course Discharge Diagnosis: 1. Urinary retention. 2. Failure medical therapy and voiding trials. Hospital Course: The patient was admitted on the morning of 06/01/2022 and underwent uncomplicated simple open prostatectomy under Duramorph and general anesthesia. His postoperative course was unremarkable in that he tolerated a general diet, had return of lower GI function common was able to ambulate without assistance by the 1st postoperative morning. On the morning of 06/03/2022 the patient was stable for discharge. Pathology was pending at discharge. Status at Discharge Cognitive/behavioral status at discharge: oriented Functional status at discharge: independent ambulation Overall status at discharge: patient is back to baseline Exam Vital Signs (past 8 hours): - 06/03/22 06:00 06/03/22 08:28 06/03/22 09:50 Temperature 98.8 F 100.3 F H Pulse Rate 78 81 Respiratory Rate 18 16 Blood Pressure 138/62 138/62 153/72 H Pulse Oximetry 94 95 Oxygen Flow Rate 0 0 Fraction of Inspired Oxygen 28 SaO2/FiO2 Ratio 342 Oxygen Delivery Method Room Air Oxygen Flow Rate 0 Narrative Exam Narrative: Well-developed, moderately over nourished elderly gentleman lying in bed and in no acute distress. He is conversing with family members. Chest-equal and unlabored expansion bilaterally. Heart-normal sinus rhythm. Abdomen-round and protuberant. Soft. No tenderness other than that related to incision. KARI drain has scant serosanguineous output. Barrera is draining moderate maroon colored urine without clot. Extremities-no pallor, edema, or cyanosis. Objective Labs Result Diagrams: 06/01/22 07:47 06/01/22 07:47 [facility] Medical History Arthritis Arthritis BPH (benign prostatic hyperplasia) BPH w urinary obs/LUTS Chronic indwelling Barrera catheter Coronary heart disease Diverticular disease Elevated PSA Hearing impaired Heart attack High blood pressure History of nephrolithiasis Kidney stones Lower urinary tract symptoms Memory changes Myocardial infarction (~2004) Seasonal allergies Swelling of lymph node (03/31/22) Thyroid nodule Urinary retention Urinary retention due to benign prostatic hyperplasia Surgical History History of appendectomy History of cardiac cath (~2018) History of colon surgery History of extraction of renal calculus History of prostate biopsy Hx of bilateral cataract extraction Hx of oral surgery Family History Father BPH (benign prostatic hyperplasia) Coronary artery disease HI (hearing impairment) Mother Hyperlipidemia Hypertension Social History marital status: number of children: 4 household members: spouse Smoking Status: Never smoker alcohol intake: never caffeine: Yes Type(s) of exercise: walking frequency: daily duration: 15-30 minutes/day Discharge Assessment & Plan Assessment and Plan Assessment: 1. Stable postoperative day 2 status post SIMPLE OPEN PROSTATECTOMY. 2. Pathology pending. 3. Indwelling Barrera catheter for postoperative healing. Plan of Treatment: 1. Discharge home today. 2. Follow-up on pathology report when final by telephone. 3. Catheter care and use instruction provided prior to discharge. Discharge Plan Discharge Plan Patient Disposition: Home Provider Discharge Comment: Is contact the urology clinic to schedule outpatient follow-up appointment. Discharge orders & Medications Prescriptions: New hydrochlorothiazide 25 mg Tablet 12.5 mg PO DAILY 90 Days Qty: 90 3RF oxycodone 5 mg Tablet 5 mg PO Q4H PRN (Reason: Pain, Moderate (4-6)) Qty: 20 0RF enoxaparin [Lovenox] 40 mg/0.4 mL Syringe 40 mg SUBCUT DAILY Qty: 12 0RF cefdinir 300 mg capsule 300 mg PO BID Qty: 6 0RF Rx Instructions: Begin on the morning of 06/14/2022 (the day prior to schedule catheter removal). Continued losartan-hydrochlorothiazide 100-12.5 mg tablet 1 tab PO DAILY melatonin 1 mg tablet 1 mg PO BEDTIME PRN (Reason: Sleep) multivitamin [Daily Multi-Vitamin] Tablet 2 tab PO DAILY Discontinued tamsulosin 0.4 mg capsule 0.8 mg PO DAILY Qty: 90 3RF Rx Instructions: In the morning, 30 minutes after eating breakfast. Follow up/Referrals: Callum Jain MD [Primary Care Provider] - Diet/Activity/Treatments Diet: Diet as Tolerated Activity: Do not lift objects heavier than 15 lb x 4 weeks. No driving until Barrera catheter removed. Catheter: 2-way Barrera Catheter comment: Large [id number] and during night. Leg bag-when out of home. Skin/Wound/Dressing Care Report to your healthcare provider any signs of infection, such as:: chills, fever, night sweats, increased pain, unusual drainage and unusual redness Dressing: Leave incision open to air as directed. Visit Report/Discharge Packet Instructions: DI for Prescription Opioid Use Stand Alone Forms: Surgery Discharge Discharge Data Primary Care Provider: Callum Jain Quality VTE Deep Vein Thrombosis/Pulmonary Embolism Present on Admission: No
--- NOTE | 2022-06-03 11:32 | CM.DPNOTE ---
DCP Discharge Home Per Urologist, pt tolerated procedure well and has pain controlled and tolerating diet and ambulating and stable for d/c home and given instructions on bah maintenance and discharge instructions and outpt follow up and pathology still pending at this time and to d/c with oral meds. Plan: Patient to d/c home with supportive spouse and Dtr and close outpt follow up with Urology and will be contacted once pathology results return. No further SW needs at this time. NAYE Watson
--- NOTE | 2022-06-03 13:41 | PC.NURSE ---
Pt is dressed and ready for discharge home with family. IV, Drain, and dressing have been removed and incision is cdi and open to air. Pt has showered. Went over d/c instructions with Pt and family, discussed d/c meds, reviewed bah catheter care, provided needed materials for home bah care, reviewed procedure for lovenox injections and provided handout, reminded Pt no driving while on narcotics, no heavy machinery, drink plenty of fluids to prevent constipation or dehydration, reviewed stroke education, discussed s/s of infection and when to call MD, and follow up appointment as well as reiterated that Pt is to start his abx on the 11th-1 day prior to bah removal. Pt and family denied further questions and Pt was taken out via w/c by [facility] to POV with family and all belongings.
== END 2022-06-03 13:45 | disposition home or self-care (01) | DRG 988 ==
PROVIDERS: Admitting Provider Specialist; Family Provider Family Medicine; PCP Family Medicine; Referring Provider Specialist; Visit Provider Specialist
PROC: 0VT00ZZ Resection of Prostate, Open Approach (ICD-10-PCS; principal; 2022-06-01 07:45)
DX: R33.9 Retention of urine, unspecified (principal); N13.8 Other obstructive and reflux uropathy; N40.1 Benign prostatic hyperplasia with lower urinary tract symptoms; I10 Essential (primary) hypertension; Z20.822 Contact with and (suspected) exposure to COVID-19
CPT/HCPCS: 36415; 55821; 80048; 81001; 82962; 85014; 85018; 86850; 86900; 86901; 87077; 87086; 87186; 87635; 94762; C9803; C9290; J0131; J0171; J0295; J0330; J0696; J1100; J1170; J1650; J2274; J2704; J3010; Q9968

== ENCOUNTER → 2023-01-12 10:48 | Outpatient (CLI) | payer OTHER, SELFPAY ==
[2022-06-01 06:34] VITALS: BMI 31.2
[2023-01-12 12:43] LABS: Prostate Specific Antigen 0.926 ng/mL (0.10-4.00)
== END ==
PROVIDERS: Family Provider Family Medicine; PCP Family Medicine; Referring Provider Specialist; Visit Provider Specialist
DX: R97.20 Elevated prostate specific antigen [PSA] (principal)
CPT/HCPCS: 36415; 84153

== ENCOUNTER → 2023-01-14 10:23 | Outpatient (CLI) | payer OTHER, SELFPAY ==
[2022-06-01 06:34] VITALS: BMI 31.2
== END ==
PROVIDERS: Family Provider Family Medicine; PCP Family Medicine; Visit Provider Specialist
DX: N40.0 Benign prostatic hyperplasia without lower urinary tract symptoms (principal); R33.9 Retention of urine, unspecified; Z87.442 Personal history of urinary calculi
CPT/HCPCS: 51798; 81002; 87077; 87086; 87186; 99214

== ENCOUNTER → 2023-07-14 11:44 | Outpatient (CLI) | payer MEDICARE, SELFPAY ==
[2022-06-01 06:34] VITALS: BMI 31.2
[2023-07-14 13:53] LABS: Prostate Specific Antigen 0.591 ng/mL (0.10-4.00)
== END ==
PROVIDERS: Family Provider Family Medicine; PCP Family Medicine; Referring Provider Specialist; Visit Provider Specialist
DX: R97.20 Elevated prostate specific antigen [PSA] (principal)
CPT/HCPCS: 36415; 84153

== ENCOUNTER → 2023-10-12 13:27 | Outpatient (CLI) | payer MEDICARE, SELFPAY ==
[2022-06-01 06:34] VITALS: BMI 31.2
--- NOTE | 2023-10-12 | DI.RAD.S_ITS ---
PROCEDURE: XR ANKLE LT MIN 3V INDICATIONS: Pain in left ankle and joints of left foot TECHNIQUE: 3 views of the ankle were acquired. COMPARISON: None. FINDINGS: Bones: No fractures or dislocations. Ankle mortise is normally aligned. No suspicious bony lesions. Soft tissues: No tibiotalar joint effusion. Achilles tendon appears normal. IMPRESSION: No acute bony abnormality or significant effusion. Dictated by: Fabio Anne M.D. on 10/12/2023 at 14:27 Approved by: Fabio Anne M.D. on 10/12/2023 at 14:28
--- NOTE | 2023-10-12 | DI.RAD.S_ITS ---
PROCEDURE: XR FOOT LT MIN 3V INDICATIONS: Pain in left ankle and joints of left foot TECHNIQUE: 3 views of the foot were acquired. COMPARISON: None. FINDINGS: Bones: No fractures or dislocations. Moderate diffuse interphalangeal joint degeneration. Mild hallux valgus angulation of the 1st MTP with medial bunion formation. Diffusely decreased osseous mineralization. No suspicious bony lesions. Soft tissues: No tibiotalar joint effusion. Achilles tendon appears normal. IMPRESSION: 1. No acute osseous abnormalities. Moderate diffuse interphalangeal joint degeneration. 2. Mild hallux valgus angulation of the 1st MTP with medial bunion formation. Dictated by: Fabio Anne M.D. on 10/12/2023 at 14:28 Approved by: Fabio Anne M.D. on 10/12/2023 at 14:29
== END ==
PROVIDERS: Family Provider Family Medicine; PCP Family Medicine; Referring Provider Family Medicine; Visit Provider Family Medicine
DX: M19.072 Primary osteoarthritis, left ankle and foot (principal); M20.12 Hallux valgus (acquired), left foot; M21.612 Bunion of left foot; M25.572 Pain in left ankle and joints of left foot
CPT/HCPCS: 73610; 73630

== ENCOUNTER → 2024-06-19 07:14 | Outpatient (CLI) | payer MEDICARE, SELFPAY ==
[2022-06-01 06:34] VITALS: BMI 31.2
--- NOTE | 2024-06-19 | DI.NM.S_ITS ---
PROCEDURE: NM BETH PERF SPECT R&S PHARM Rest and pharmacological stress myocardial perfusion SPECT with gated imaging and ejection fraction RADIOPHARMACEUTICAL: 26 mCi Tc-99m tetrafosmin IV at rest and 23.9 mCi Tc-99m tetrafosmin IV at peak effect of pharmacological stress. Tbt-vkb-lprarxgn was performed. INDICATIONS: Shortness of breath PQRS ATTESTATIONS: Measure 322 - Is this imaging test primarily performed on a low-risk surgery patient for preoperative evaluation within 30 days preceding their low-risk non-cardiac surgery? Low-risk surgery is defined as cardiac or myocardial infarction less than 1%, including (but not limited to) endoscopic procedures, superficial procedures, cataract surgery, and excisional breast surgery: Answer: No Measure 323 - Is this imaging test performed primarily for the monitoring of an asymptomatic patient who had percutaneous coronary intervention on the visit date or within 2 years of the visit date? Answer: No Measure 324 - Is this imaging test performed primarily for the initial detection and risk assessment on an asymptomatic, low coronary heart disease patient? Low CHD risk definition = clinicians should consider the maximum number of available patient factors used to estimate risk based on [place] (ATP III criteria), typically age, gender, diabetes, smoking status, and use of blood pressure medication, and integrate age appropriate estimates for missing elements, such as LDL or standard blood pressure. Answer: No TECHNIQUE: Radiopharmaceutical was injected at peak stress test, and also at rest. SPECT images were obtained. SPECT myocardial perfusion images were displayed in short axis, horizontal long axis, and vertical long axis views. Gated images were reviewed using [employer] software. COMPARISON: None. CARDIAC STRESS: A pharmacologic stress test was performed under the supervision of an attending staff, using an infusion of Lexiscan at 0.4 mg. Hemodynamic data: There is normal blood pressure and heart rate response to pharmacologic stress. Symptoms: The patient denied anginal chest pain. Aminophylline: No EKG: No diagnostic changes of ischemia; no ectopy. FINDINGS: Raw data: There is good myocardial uptake of radiotracer. No significant motion artifacts. Jslm-at-ambdo ratio is 0.25 (normal is less than 0.38 for tetrafosmin tracer). Left ventricle function: Gated images demonstrate normal left ventricular wall thickening. No segmental wall motion abnormalities. No transient ischemic dilation; TID is 1.00 (normal less than 1.3). Left ventricle resting end diastolic volume is 90 mL. Left ventricle stress ejection fraction is 88; normal range is above 45%. Myocardial perfusion: There is mild hypoperfusion in the inferior segment noted in the rest images. Prone and stress images had no perfusion defects. No other perfusion defects identified. IMPRESSION: Negative Lexiscan myocardial perfusion scan for ischemia and infarction. Dictated by: Rodolfo Kirkland M.D. on 06/20/2024 at 16:54 Approved by: Rodolfo Kirkland M.D. on 06/20/2024 at 16:57
== END ==
PROVIDERS: Family Provider Family Medicine; PCP Family Medicine; Referring Provider Internal Medicine Cardiovascular Disease; Visit Provider Internal Medicine Cardiovascular Disease
DX: R06.02 Shortness of breath (principal)
CPT/HCPCS: 78452; 93017; A9502; J2785

== ENCOUNTER → 2025-05-03 14:40 | Outpatient (CLI) | payer MEDICARE, SELFPAY ==
[2022-06-01 06:34] VITALS: BMI 31.2
--- NOTE | 2025-05-03 15:27 | DI.US.S_ITS ---
PROCEDURE: US THYROID INDICATIONS: THYROID NODULE TECHNIQUE: Real-time scanning was performed of the thyroid gland, with image documentation. COMPARISON: None. FINDINGS: Thyroid: Right lobe measures 3.4 x 1.4 x 1.6 cm. Left lobe measures 4.3 x 2.4 x 1.2 cm. Isthmus is 0.3 cm thick. Echotexture is homogeneous. Nodule number: 1 Location: Left mid Size: 1.6 x 1.6 x 1.0 cm. Composition: Solid Echogenicity: Isoechoic Shape: wider than tall. Margins: Smooth Echogenic foci: None Total points: 3 ACR TI-RADS category: 3 Nodule number: 2 Location: Left inferior Size: 1.2 x 1.3 x 1.3 cm. Composition: Cystic Echogenicity: Anechoic Shape: wider than tall. Margins: Ill-defined Echogenic foci: Comet tail artifact foci Total points: 0 ACR TI-RADS category: 1. Benign colloid cysts. IMPRESSION: 1. Left mid thyroid nodule measuring 1.6 cm. TR 3. -Recommend follow-up thyroid ultrasound in 1 year. 2. Left inferior thyroid nodule measuring 1.3 cm. TR 1. Benign colloid cysts. ACR TI-RADS definitions and recommendations: TI-RADS 1 (benign): 0 points. FNA not needed. TI-RADS 2 (not suspicious): 2 points. FNA not needed. TI-RADS 3: 3 points. * FNA if 2.5 cm or larger, follow up if 1.5 cm or larger (at 1, 3, and 5 years). TI-RADS 4: 4-6 points. * FNA if 1.5 cm or larger, follow up if 1 cm or larger (at 1, 2, 3, and 5 years). TI-RADS 5: 7 points or more. * FNA if 1 cm or larger, follow up if 0.5 cm or larger (every year for 5 years). Dictated by: Claudia SIMMONS Interpreted: Maxi Rojas MD on 05/04/2025 at 8:27 Transcribed by: INNA on 05/04/2025 at 8:32 Approved by: Maxi Rojas M.D. on 05/04/2025 at 13:48
== END ==
LOC: US 14:41
PROVIDERS: Family Provider Family Medicine; PCP Family Medicine; Referring Provider Family Medicine; Visit Provider Family Medicine
DX: E04.2 Nontoxic multinodular goiter (principal)
CPT/HCPCS: 76536

== ENCOUNTER → 2025-05-23 10:46 | Outpatient (CLI) | payer MEDICARE, SELFPAY ==
[2022-06-01 06:34] VITALS: BMI 31.2
--- NOTE | 2025-05-23 10:48 | DI.RAD.S_ITS ---
PROCEDURE: XR LUMBAR SPINE 2-3V INDICATIONS: Low back pain, unspecified TECHNIQUE: 3 views of the lumbar spine were acquired. COMPARISON: None. FINDINGS: Bones: 5 ary-wgh-lrmduyq vertebrae are present. Mild, grade 1, anterolisthesis of L4 on L5. Severe spondylosis at L5-S1. Moderate spondylosis at L4-5. Mild inferior lumbar facet arthrosis. No vertebral body compression fractures. No suspicious bony lesions. Soft tissues: Overlying bowel gas pattern is normal. No suspicious soft tissue calcifications. Surgical clips overlie the left hemipelvis. Vascular calcifications. IMPRESSION: Grade 1 anterolisthesis of L4 on L5. Multilevel spondylosis reaches severe at L5-S1. Dictated by: Mike Reis M.D. on 05/24/2025 at 8:10 Approved by: Mike Reis M.D. on 05/24/2025 at 8:11
--- OUTSIDE RECORDS SUMMARY | 2025-05-25 15:20 | XMS_ITS | Clinical Summary ---
Author Organization [facility] Address [address] [place] [address] Care Team Providers Care Transitional Kindergarten Teacher Name Role Phone Unavailable Primary Care Provider Unavailabl e Social History Tobacco Use Types Packs/Day Years Used Date Smoking Tobacco: Never Assessed Sex and Gender Information Value Date Recorded Sex Assigned at Not on file Legal Sex Male 9:13 AM PST Gender Identity Not on file Sexual Orientation Not on file Plan of Treatment Not on file Insurance [facility] [employer] PPO
== END ==
PROVIDERS: Family Provider Family Medicine; PCP Family Medicine; Referring Provider Family Medicine; Visit Provider Family Medicine
DX: M43.16 Spondylolisthesis, lumbar region (principal); M47.816 Spondylosis without myelopathy or radiculopathy, lumbar region; M47.817 Spondylosis without myelopathy or radiculopathy, lumbosacral region; M54.50 Low back pain, unspecified
CPT/HCPCS: 72100

== ENCOUNTER 2025-07-03 13:37 | Emergency (ER) | payer MEDICARE, SELFPAY ==
[2022-06-01 06:34] VITALS: BMI 31.2
[2025-07-03] VITALS (107 sets, daily range): BP systolic 101–171; BP diastolic 48–114; PULSE 28–53; RESP 13–27; TEMP 36.3; O2SAT 91–96; BMI 32.6
--- OUTSIDE RECORDS SUMMARY | 2025-07-03 13:39 | XMS_ITS | Clinical Summary ---
Author Organization [facility] Address [address] [place] [address] Phone Care Team Providers Care News Analyst Name Role Phone Callum Jain Primary Care Provider [phone] Callum Jain Unavailable Encounters Date Type Department Care Team Description 06/28/2025 Risk Stratification [facility] [address] [place] [address] Pcp, Unknown 05/29/2025 Risk Stratification [facility] [address] [place] [address] Pcp, Unknown from Last 3 Months Social History Tobacco Use Types Packs/Day Years Used Date Smoking Tobacco: Never Assessed Sex and Gender Information Value Date Recorded Sex Assigned at Not on file Legal Sex Male 10:22 AM PDT Gender Identity Not on file Sexual Orientation Not on file Plan of Treatment Health Maintenance Due Date Last Done Comments Annual Wellness Visit 1940 DTaP/Td/Tdap Vaccines (1 - Tdap) 1961 Pneumococcal Vaccine age 50+ (1 of 1 - PCV) 1992 Zoster Vaccine (1 of 2) 1992 Annual Dementia Screening 11/17/2007 Depression Screening 11/17/2007 Fall Risk Assessment 11/17/2007 RSV Vaccine (1 - 1-dose 75+ series) 2017 COVID-19 Vaccine (2024-2 6 season) 2025 Influenza Vaccine (#1) 2025 HPV Vaccines Aged Out No longer eligi ble based on patient's age to complete this topic Hepatitis B Vaccines Aged Out No long er eligible based on patient's age to complete this topic Insurance [employer] [place] [id number] Care Teams News Analyst Relationship Specialty Start Date End Date Callum Jain [address] [place] [id number] PCP - General 07/05/21 Callum Jain [address] [place] [id number] PCP - Managed Care PCP - [facility] 07/05/21 07/04/25
--- NOTE | 2025-07-03 13:46 | DI.RAD.S_ITS ---
1PROCEDURE: XR CHEST 1V INDICATIONS: Chest Pain TECHNIQUE: One view of the chest was acquired. COMPARISON: None. FINDINGS AND IMPRESSION: No airspace consolidation or pleural effusion on this single view study. Limited evaluation due to low lung volumes. Suspected nodule seen in the right upper lung measuring 1.1 cm. Differential includes a calcified granuloma. Heart size is at the upper limit of normal. Prominent mediastinal aortic contours, indeterminate, may be related to tortuosity. Degenerative osseous findings. Dictated by: Casper Arguello M.D. on 07/03/2025 at 14:19 Approved by: Casper Arguello M.D. on 07/03/2025 at 14:20
--- NOTE | 2025-07-03 13:59 | EKG_ITS ---
[address] [address] Test Date: 2025-07-03 Pat Name: Viktor Mullins Department: [facility] Room: Gender: Male Dentist Private Practice: [facility] : 1940 Requested By: Order Number: [id number] Reading MD: Mike Patel Measurements Intervals [place] Rate: 33 P: 36 HI: 480 QRS: -36 QRSD: 152 T: -38 QT: 528 QTc: 390 Interpretive Statements Critical Test Result: Low HR Marked sinus bradycardia with 1st degree AV block Left axis deviation Right bundle branch block Electronically Signed On 07-04-2025 15:05:38 PST by Mike Patel
--- NOTE | 2025-07-03 14:06 | ED.ARRPALP ---
HPI - Arrhythmia/Palpitations <Karlene Harrison DO - Last Filed: 07/03/25 16:02> General Chief Complaint: Arrhythmia/Palpitations Stated Complaint: weakness// low bp+pulse Time Seen by Provider: 07/03/25 13:57 Source: patient Mode of arrival: Ambulatory History of Present Illness HPI narrative: Patient is a 84-year-old male history of hypertension on losartan only presenting today with weakness and dizziness. He reports that for the last couple of days every time he stands up he gets a little dizzy lightheaded he has not passed out he does not have dairy sit down Related Data Home Medications ?Medication ?Instructions ?Recorded ?Confirmed losartan 100 1 tab PO DAILY 07/31/21 07/18/24 mg-hydrochlorothiazide 12.5 mg tablet melatonin 1 mg tablet 1 mg PO BEDTIME PRN Sleep 07/31/21 07/18/24 multivitamin (Daily Multi-Vitamin 2 tab PO DAILY 07/31/21 07/18/24 tablet) Allergies Allergy/AdvReac Type Severity Reaction Status Date / Time meperidine (From Demerol) Allergy Severe Rash Verified 07/18/24 10:52 metronidazole (From Flagyl) AdvReac Severe Cognitive Verified 07/18/24 10:52 changes Patient History <Karlene Harrison DO - Last Filed: 07/03/25 16:02> Medical History History of urinary retention BPH loc w/o ur obs/LUTS Arthritis Memory changes Seasonal allergies Myocardial infarction (~2004) Swelling of lymph node (03/31/22) Thyroid nodule Hearing impaired History of nephrolithiasis Lower urinary tract symptoms Heart attack Kidney stones High blood pressure Diverticular disease Coronary heart disease BPH (benign prostatic hyperplasia) Arthritis Surgical History History of cardiac cath (~2018) Hx of bilateral cataract extraction Hx of oral surgery History of extraction of renal calculus History of prostate biopsy History of colon surgery History of appendectomy Family History Father BPH (benign prostatic hyperplasia) Coronary artery disease [place] (hearing impairment) Mother Hyperlipidemia Hypertension Social History marital status: number of children: 4 household members: spouse alcohol intake: never caffeine: Yes Type(s) of exercise: walking frequency: daily duration: 15-30 minutes/day alcohol intake frequency: 0-2 drinks per day Exam <Karlene Harrison DO - Last Filed: 07/03/25 16:02> Initial Vital Signs Initial Vital Signs: Vital Signs Temperature 97.4 F L 07/03/25 13:40 Pulse Rate 36 L 07/03/25 13:40 Respiratory Rate 18 07/03/25 13:40 Blood Pressure 129/62 07/03/25 13:40 Pulse Oximetry 96 07/03/25 13:40 Oxygen Delivery Method Room Air 07/03/25 13:40 GENERAL: Alert pleasant 84-year-old male and in no acute distress. HEENT: Head atraumatic,EOMI, pupils reactive, face symmetric, moist mucous membranes CARDIOVASCULAR: Regular rate and rhythm without murmurs, rubs or gallops. RESPIRATORY: Breath sounds equal bilaterally, no wheezes rales or rhonchi. ABDOMEN: Soft, nontender. Normoactive bowel sounds all 4 quadrants. No guarding or rebound. EXTREMITIES: Normal range of motion, no clubbing or edema. Neurovascularly intact NEUROLOGICAL: Alert and oriented x4.Normal gait and speech. Cranial nerves II through XII grossly intact. SKIN: Warm, dry, no laceration, no petechiae, no rashes or lesions. <Wayne Peralta DO - Last Filed: 07/04/25 10:13> Initial Vital Signs Initial Vital Signs: Vital Signs Temperature 97.4 F L 07/03/25 13:40 Pulse Rate 36 L 07/03/25 13:40 Respiratory Rate 18 07/03/25 13:40 Blood Pressure 129/62 07/03/25 13:40 Pulse Oximetry 96 07/03/25 13:40 Oxygen Delivery Method Room Air 07/03/25 13:40 Course <Karlene Harrison DO - Last Filed: 07/03/25 16:02> Orders Ordered: Discontinued Medications Aspirin (Aspirin 81 Mg Chew Tab) 324 mg PO NOW ONE Stop: 07/03/25 13:47 Last Admin: 07/03/25 14:14 Dose: 324 mg Documented By: KOREY Atropine Sulfate (Atropine 1 Mg/10 Ml Syringe) 0.5 mg IV NOW ONE Stop: 07/03/25 13:58 Last Admin: 07/03/25 14:14 Dose: 0.5 mg Documented By: KOREY Sodium Chloride 9 ml/ (Epinephrine HCl 0.1 mg) 0 ml IV NOW ONE Stop: 07/03/25 16:26 Last Admin: 07/03/25 16:36 Dose: 1 ml Documented By: KOREY Sodium Chloride 9 ml/ (Epinephrine HCl 0.1 mg) 0 ml IV NOW ONE Stop: 07/03/25 17:45 Last Admin: 07/03/25 17:47 Dose: 1 ml Documented By: KOREY Sodium Chloride 9 ml/ (Epinephrine HCl 0.1 mg) 0 ml IV NOW ONE Stop: 07/03/25 18:26 Last Admin: 07/03/25 18:25 Dose: 1 ml Documented By: KOREY Sodium Chloride 9 ml/ (Epinephrine HCl 0.1 mg) 0 ml IV NOW ONE Stop: 07/03/25 18:55 Last Admin: 07/03/25 18:55 Dose: 1 ml Documented By: KOREY Heparin Sodium (Porcine) (Heparin 5,000 Unit/Ml Vial) 5,000 unit IV NOW ONE Stop: 07/03/25 14:48 Last Admin: 07/03/25 14:55 Dose: 5,000 unit Documented By: KOREY Sodium Chloride (Normal Saline 0.9%) 1,000 mls @ 1,000 mls/hr IV BOLUS ONE Stop: 07/03/25 15:14 Last Infusion: 07/03/25 15:20 Dose: Infused Documented By: Admin: 07/03/25 14:21 Dose: 1,000 mls/hr Documented By: KOREY Heparin Sodium/Dextrose (Heparin Drip) 25,000 unit in 500 mls @ 19.992 mls/hr IV CONT CORBIN; Protocol Last Admin: 07/03/25 14:55 Dose: 10.25 units/kg/hr, 19.992 mls/hr Documented By: KOREY Co-signed By: SEBASTIAN Dopamine HCl/Dextrose (Dopamine 400 Mg-D5w 250 Ml) 400 mg in 250 mls @ 18.285 mls/hr IV TITRATE CORBIN; Protocol Last Admin: 07/03/25 22:07 Dose: 5 mcg/kg/min, 18.285 mls/hr Documented By: KOREY Vital Signs Vital signs: Vital Signs - 8 hr 07/03/25 13:59 07/03/25 14:00 07/03/25 14:01 Pulse Rate 34 L 34 L 33 L Respiratory Rate 19 19 Blood Pressure Pulse Oximetry 95 95 95 07/03/25 14:01 07/03/25 14:21 07/03/25 14:21 Pulse Rate 36 L Respiratory Rate 14 Blood Pressure 152/67 H 123/57 L Pulse Oximetry 93 07/03/25 14:25 07/03/25 14:25 07/03/25 14:30 Pulse Rate 36 L 36 L Respiratory Rate 16 17 Blood Pressure 113/55 L Pulse Oximetry 94 95 07/03/25 14:30 07/03/25 14:35 07/03/25 14:35 Pulse Rate 37 L Respiratory Rate 21 Blood Pressure 113/59 L 118/57 L Pulse Oximetry 94 07/03/25 14:40 07/03/25 14:40 07/03/25 14:45 Pulse Rate 35 L 33 L Respiratory Rate 16 16 Blood Pressure 118/59 L Pulse Oximetry 95 94 07/03/25 14:45 07/03/25 14:50 07/03/25 14:50 Pulse Rate 34 L Respiratory Rate 15 Blood Pressure 114/55 L 116/59 L Pulse Oximetry 95 07/03/25 14:55 07/03/25 14:55 07/03/25 15:00 Pulse Rate 34 L Respiratory Rate 23 Blood Pressure 119/61 116/60 Pulse Oximetry 95 07/03/25 15:00 07/03/25 15:05 07/03/25 15:05 Pulse Rate 35 L 36 L Respiratory Rate 20 20 Blood Pressure 139/65 Pulse Oximetry 95 95 07/03/25 15:10 07/03/25 15:10 07/03/25 15:15 Pulse Rate 34 L 35 L Respiratory Rate 18 21 Blood Pressure 145/65 H Pulse Oximetry 96 95 07/03/25 15:15 07/03/25 15:20 07/03/25 15:20 Pulse Rate 34 L Respiratory Rate 18 Blood Pressure 129/60 119/56 L Pulse Oximetry 94 07/03/25 15:25 07/03/25 15:25 07/03/25 15:30 Pulse Rate 32 L Respiratory Rate 17 Blood Pressure 112/55 L 125/61 Pulse Oximetry 95 07/03/25 15:30 07/03/25 15:35 07/03/25 15:35 Pulse Rate 32 L 32 L Respiratory Rate 16 24 Blood Pressure 112/58 L Pulse Oximetry 95 96 07/03/25 15:40 07/03/25 15:40 07/03/25 15:45 Pulse Rate 32 L Respiratory Rate 17 Blood Pressure 113/58 L 125/58 L Pulse Oximetry 95 07/03/25 15:45 07/03/25 15:50 07/03/25 15:50 Pulse Rate 32 L 34 L Respiratory Rate 20 22 Blood Pressure 129/59 L Pulse Oximetry 93 94 07/03/25 15:55 07/03/25 15:55 07/03/25 16:00 Pulse Rate 31 L 38 L Respiratory Rate 16 20 Blood Pressure 115/58 L Pulse Oximetry 94 94 07/03/25 16:00 07/03/25 16:05 07/03/25 16:05 Pulse Rate 33 L Respiratory Rate 21 Blood Pressure 114/57 L 127/59 L Pulse Oximetry 94 07/03/25 16:10 07/03/25 16:10 07/03/25 16:15 Pulse Rate 31 L Respiratory Rate 14 Blood Pressure 113/56 L 114/56 L Pulse Oximetry 95 07/03/25 16:15 07/03/25 16:20 07/03/25 16:20 Pulse Rate 36 L 29 L Respiratory Rate 26 H 20 Blood Pressure 117/56 L Pulse Oximetry 94 93 07/03/25 16:25 07/03/25 16:25 07/03/25 16:30 Pulse Rate 31 L Respiratory Rate 18 Blood Pressure 118/58 L 110/55 L Pulse Oximetry 95 07/03/25 16:30 07/03/25 16:35 07/03/25 16:35 Pulse Rate 31 L 30 L Respiratory Rate 22 18 Blood Pressure 109/56 L Pulse Oximetry 94 95 07/03/25 16:40 07/03/25 16:40 07/03/25 16:45 Pulse Rate 32 L Respiratory Rate 23 Blood Pressure 142/65 H 101/52 L Pulse Oximetry 94 07/03/25 16:45 07/03/25 16:50 07/03/25 16:50 Pulse Rate 31 L 30 L Respiratory Rate 19 21 Blood Pressure 114/56 L Pulse Oximetry 95 94 07/03/25 16:55 07/03/25 16:55 07/03/25 17:00 Pulse Rate 32 L 32 L Respiratory Rate 21 20 Blood Pressure 123/57 L Pulse Oximetry 94 95 07/03/25 17:00 07/03/25 17:05 07/03/25 17:05 Pulse Rate 30 L Respiratory Rate 16 Blood Pressure 140/65 122/56 L Pulse Oximetry 95 07/03/25 17:10 07/03/25 17:10 07/03/25 17:15 Pulse Rate 30 L 30 L Respiratory Rate 16 17 Blood Pressure 113/59 L Pulse Oximetry 95 95 07/03/25 17:15 07/03/25 17:20 07/03/25 17:20 Pulse Rate 29 L Respiratory Rate 13 Blood Pressure 122/58 L 103/56 L Pulse Oximetry 94 07/03/25 17:26 07/03/25 17:26 07/03/25 17:30 Pulse Rate 29 L 36 L Respiratory Rate 17 19 Blood Pressure 111/55 L Pulse Oximetry 94 95 07/03/25 17:30 07/03/25 17:35 07/03/25 17:35 Pulse Rate 29 L Respiratory Rate 22 Blood Pressure 128/61 104/53 L Pulse Oximetry 93 07/03/25 17:40 07/03/25 17:40 07/03/25 17:45 Pulse Rate 30 L 30 L Respiratory Rate 21 17 Blood Pressure 117/56 L Pulse Oximetry 94 94 07/03/25 17:45 07/03/25 17:51 07/03/25 17:51 Pulse Rate 37 L Respiratory Rate 21 Blood Pressure 113/56 L 157/114 H Pulse Oximetry 94 07/03/25 17:56 07/03/25 17:56 07/03/25 18:00 Pulse Rate 30 L Respiratory Rate 25 H Blood Pressure 115/54 L 112/56 L Pulse Oximetry 94 07/03/25 18:00 07/03/25 18:05 07/03/25 18:05 Pulse Rate 30 L 29 L Respiratory Rate 18 19 Blood Pressure 111/58 L Pulse Oximetry 93 94 07/03/25 18:10 07/03/25 18:10 07/03/25 18:15 Pulse Rate 28 L 29 L Respiratory Rate 20 20 Blood Pressure 102/54 L Pulse Oximetry 94 93 07/03/25 18:15 07/03/25 18:20 07/03/25 18:20 Pulse Rate 29 L Respiratory Rate 17 Blood Pressure 105/53 L 113/56 L Pulse Oximetry 94 07/03/25 18:25 07/03/25 18:25 07/03/25 18:30 Pulse Rate 28 L 40 L Respiratory Rate 18 24 Blood Pressure 119/59 L Pulse Oximetry 94 95 07/03/25 18:31 07/03/25 18:31 07/03/25 18:35 Pulse Rate 33 L 32 L Respiratory Rate 15 17 Blood Pressure 129/59 L Pulse Oximetry 92 96 07/03/25 18:35 07/03/25 18:40 07/03/25 18:40 Pulse Rate 30 L Respiratory Rate 18 Blood Pressure 109/56 L 114/54 L Pulse Oximetry 92 07/03/25 18:45 07/03/25 18:45 07/03/25 18:50 Pulse Rate 28 L Respiratory Rate 18 Blood Pressure 122/58 L 101/48 L Pulse Oximetry 94 07/03/25 18:50 07/03/25 18:55 07/03/25 18:55 Pulse Rate 28 L 28 L Respiratory Rate 14 15 Blood Pressure 101/51 L Pulse Oximetry 95 96 07/03/25 19:00 07/03/25 19:01 07/03/25 19:01 Pulse Rate 33 L 32 L Respiratory Rate 18 18 Blood Pressure 138/62 Pulse Oximetry 96 94 07/03/25 19:05 07/03/25 19:05 07/03/25 19:10 Pulse Rate 33 L 30 L Respiratory Rate 21 18 Blood Pressure 127/60 Pulse Oximetry 96 96 07/03/25 19:10 07/03/25 19:15 07/03/25 19:15 Pulse Rate 29 L Respiratory Rate 20 Blood Pressure 126/56 L 115/56 L Pulse Oximetry 95 07/03/25 19:26 07/03/25 19:26 07/03/25 19:30 Pulse Rate 40 L 46 L Respiratory Rate 27 H Blood Pressure 131/60 Pulse Oximetry 93 95 07/03/25 19:31 07/03/25 19:31 07/03/25 19:35 Pulse Rate 38 L 30 L Respiratory Rate 16 Blood Pressure 141/62 H Pulse Oximetry 96 96 07/03/25 19:35 07/03/25 19:40 07/03/25 19:40 Pulse Rate 31 L Respiratory Rate 17 Blood Pressure 106/50 L 111/55 L Pulse Oximetry 96 <Wayne Peralta, DO - Last Filed: 07/04/25 10:13> Orders Ordered: Discontinued Medications Aspirin (Aspirin 81 Mg Chew Tab) 324 mg PO NOW ONE Stop: 07/03/25 13:47 Last Admin: 07/03/25 14:14 Dose: 324 mg Documented By: RL Atropine Sulfate (Atropine 1 Mg/10 Ml Syringe) 0.5 mg IV NOW ONE Stop: 07/03/25 13:58 Last Admin: 07/03/25 14:14 Dose: 0.5 mg Documented By: KOREY Sodium Chloride 9 ml/ (Epinephrine HCl 0.1 mg) 0 ml IV NOW ONE Stop: 07/03/25 16:26 Last Admin: 07/03/25 16:36 Dose: 1 ml Documented By: RL Sodium Chloride 9 ml/ (Epinephrine HCl 0.1 mg) 0 ml IV NOW ONE Stop: 07/03/25 17:45 Last Admin: 07/03/25 17:47 Dose: 1 ml Documented By: RL Sodium Chloride 9 ml/ (Epinephrine HCl 0.1 mg) 0 ml IV NOW ONE Stop: 07/03/25 18:26 Last Admin: 07/03/25 18:25 Dose: 1 ml Documented By: RL Sodium Chloride 9 ml/ (Epinephrine HCl 0.1 mg) 0 ml IV NOW ONE Stop: 07/03/25 18:55 Last Admin: 07/03/25 18:55 Dose: 1 ml Documented By: KOREY Heparin Sodium (Porcine) (Heparin 5,000 Unit/Ml Vial) 5,000 unit IV NOW ONE Stop: 07/03/25 14:48 Last Admin: 07/03/25 14:55 Dose: 5,000 unit Documented By: KOREY Sodium Chloride (Normal Saline 0.9%) 1,000 mls @ 1,000 mls/hr IV BOLUS ONE Stop: 07/03/25 15:14 Last Infusion: 07/03/25 15:20 Dose: Infused Documented By: Admin: 07/03/25 14:21 Dose: 1,000 mls/hr Documented By: KOREY Heparin Sodium/Dextrose (Heparin Drip) 25,000 unit in 500 mls @ 19.992 mls/hr IV CONT CORBIN; Protocol Last Admin: 07/03/25 14:55 Dose: 10.25 units/kg/hr, 19.992 mls/hr Documented By: KOREY Co-signed By: SEBASTIAN Dopamine HCl/Dextrose (Dopamine 400 Mg-D5w 250 Ml) 400 mg in 250 mls @ 18.285 mls/hr IV TITRATE CORBIN; Protocol Last Admin: 07/03/25 22:07 Dose: 5 mcg/kg/min, 18.285 mls/hr Documented By: KOREY Vital Signs Vital signs: Vital Signs - 8 hr 07/03/25 13:59 07/03/25 14:00 07/03/25 14:01 Pulse Rate 34 L 34 L 33 L Respiratory Rate 19 19 Blood Pressure Pulse Oximetry 95 95 95 07/03/25 14:01 07/03/25 14:21 07/03/25 14:21 Pulse Rate 36 L Respiratory Rate 14 Blood Pressure 152/67 H 123/57 L Pulse Oximetry 93 07/03/25 14:25 07/03/25 14:25 07/03/25 14:30 Pulse Rate 36 L 36 L Respiratory Rate 16 17 Blood Pressure 113/55 L Pulse Oximetry 94 95 07/03/25 14:30 07/03/25 14:35 07/03/25 14:35 Pulse Rate 37 L Respiratory Rate 21 Blood Pressure 113/59 L 118/57 L Pulse Oximetry 94 07/03/25 14:40 07/03/25 14:40 07/03/25 14:45 Pulse Rate 35 L 33 L Respiratory Rate 16 16 Blood Pressure 118/59 L Pulse Oximetry 95 94 07/03/25 14:45 07/03/25 14:50 07/03/25 14:50 Pulse Rate 34 L Respiratory Rate 15 Blood Pressure 114/55 L 116/59 L Pulse Oximetry 95 07/03/25 14:55 07/03/25 14:55 07/03/25 15:00 Pulse Rate 34 L Respiratory Rate 23 Blood Pressure 119/61 116/60 Pulse Oximetry 95 07/03/25 15:00 07/03/25 15:05 07/03/25 15:05 Pulse Rate 35 L 36 L Respiratory Rate 20 20 Blood Pressure 139/65 Pulse Oximetry 95 95 07/03/25 15:10 07/03/25 15:10 07/03/25 15:15 Pulse Rate 34 L 35 L Respiratory Rate 18 21 Blood Pressure 145/65 H Pulse Oximetry 96 95 07/03/25 15:15 07/03/25 15:20 07/03/25 15:20 Pulse Rate 34 L Respiratory Rate 18 Blood Pressure 129/60 119/56 L Pulse Oximetry 94 07/03/25 15:25 07/03/25 15:25 07/03/25 15:30 Pulse Rate 32 L Respiratory Rate 17 Blood Pressure 112/55 L 125/61 Pulse Oximetry 95 07/03/25 15:30 07/03/25 15:35 07/03/25 15:35 Pulse Rate 32 L 32 L Respiratory Rate 16 24 Blood Pressure 112/58 L Pulse Oximetry 95 96 07/03/25 15:40 07/03/25 15:40 07/03/25 15:45 Pulse Rate 32 L Respiratory Rate 17 Blood Pressure 113/58 L 125/58 L Pulse Oximetry 95 07/03/25 15:45 07/03/25 15:50 07/03/25 15:50 Pulse Rate 32 L 34 L Respiratory Rate 20 22 Blood Pressure 129/59 L Pulse Oximetry 93 94 07/03/25 15:55 07/03/25 15:55 07/03/25 16:00 Pulse Rate 31 L 38 L Respiratory Rate 16 20 Blood Pressure 115/58 L Pulse Oximetry 94 94 07/03/25 16:00 07/03/25 16:05 07/03/25 16:05 Pulse Rate 33 L Respiratory Rate 21 Blood Pressure 114/57 L 127/59 L Pulse Oximetry 94 07/03/25 16:10 07/03/25 16:10 07/03/25 16:15 Pulse Rate 31 L Respiratory Rate 14 Blood Pressure 113/56 L 114/56 L Pulse Oximetry 95 07/03/25 16:15 07/03/25 16:20 07/03/25 16:20 Pulse Rate 36 L 29 L Respiratory Rate 26 H 20 Blood Pressure 117/56 L Pulse Oximetry 94 93 07/03/25 16:25 07/03/25 16:25 07/03/25 16:30 Pulse Rate 31 L Respiratory Rate 18 Blood Pressure 118/58 L 110/55 L Pulse Oximetry 95 07/03/25 16:30 07/03/25 16:35 07/03/25 16:35 Pulse Rate 31 L 30 L Respiratory Rate 22 18 Blood Pressure 109/56 L Pulse Oximetry 94 95 07/03/25 16:40 07/03/25 16:40 07/03/25 16:45 Pulse Rate 32 L Respiratory Rate 23 Blood Pressure 142/65 H 101/52 L Pulse Oximetry 94 07/03/25 16:45 07/03/25 16:50 07/03/25 16:50 Pulse Rate 31 L 30 L Respiratory Rate 19 21 Blood Pressure 114/56 L Pulse Oximetry 95 94 07/03/25 16:55 07/03/25 16:55 07/03/25 17:00 Pulse Rate 32 L 32 L Respiratory Rate 21 20 Blood Pressure 123/57 L Pulse Oximetry 94 95 07/03/25 17:00 07/03/25 17:05 07/03/25 17:05 Pulse Rate 30 L Respiratory Rate 16 Blood Pressure 140/65 122/56 L Pulse Oximetry 95 07/03/25 17:10 07/03/25 17:10 07/03/25 17:15 Pulse Rate 30 L 30 L Respiratory Rate 16 17 Blood Pressure 113/59 L Pulse Oximetry 95 95 07/03/25 17:15 07/03/25 17:20 07/03/25 17:20 Pulse Rate 29 L Respiratory Rate 13 Blood Pressure 122/58 L 103/56 L Pulse Oximetry 94 07/03/25 17:26 07/03/25 17:26 07/03/25 17:30 Pulse Rate 29 L 36 L Respiratory Rate 17 19 Blood Pressure 111/55 L Pulse Oximetry 94 95 07/03/25 17:30 07/03/25 17:35 07/03/25 17:35 Pulse Rate 29 L Respiratory Rate 22 Blood Pressure 128/61 104/53 L Pulse Oximetry 93 07/03/25 17:40 07/03/25 17:40 07/03/25 17:45 Pulse Rate 30 L 30 L Respiratory Rate 21 17 Blood Pressure 117/56 L Pulse Oximetry 94 94 07/03/25 17:45 07/03/25 17:51 07/03/25 17:51 Pulse Rate 37 L Respiratory Rate 21 Blood Pressure 113/56 L 157/114 H Pulse Oximetry 94 07/03/25 17:56 07/03/25 17:56 07/03/25 18:00 Pulse Rate 30 L Respiratory Rate 25 H Blood Pressure 115/54 L 112/56 L Pulse Oximetry 94 07/03/25 18:00 07/03/25 18:05 07/03/25 18:05 Pulse Rate 30 L 29 L Respiratory Rate 18 19 Blood Pressure 111/58 L Pulse Oximetry 93 94 07/03/25 18:10 07/03/25 18:10 07/03/25 18:15 Pulse Rate 28 L 29 L Respiratory Rate 20 20 Blood Pressure 102/54 L Pulse Oximetry 94 93 07/03/25 18:15 07/03/25 18:20 07/03/25 18:20 Pulse Rate 29 L Respiratory Rate 17 Blood Pressure 105/53 L 113/56 L Pulse Oximetry 94 07/03/25 18:25 07/03/25 18:25 07/03/25 18:30 Pulse Rate 28 L 40 L Respiratory Rate 18 24 Blood Pressure 119/59 L Pulse Oximetry 94 95 07/03/25 18:31 07/03/25 18:31 07/03/25 18:35 Pulse Rate 33 L 32 L Respiratory Rate 15 17 Blood Pressure 129/59 L Pulse Oximetry 92 96 07/03/25 18:35 07/03/25 18:40 07/03/25 18:40 Pulse Rate 30 L Respiratory Rate 18 Blood Pressure 109/56 L 114/54 L Pulse Oximetry 92 07/03/25 18:45 07/03/25 18:45 07/03/25 18:50 Pulse Rate 28 L Respiratory Rate 18 Blood Pressure 122/58 L 101/48 L Pulse Oximetry 94 07/03/25 18:50 07/03/25 18:55 07/03/25 18:55 Pulse Rate 28 L 28 L Respiratory Rate 14 15 Blood Pressure 101/51 L Pulse Oximetry 95 96 07/03/25 19:00 07/03/25 19:01 07/03/25 19:01 Pulse Rate 33 L 32 L Respiratory Rate 18 18 Blood Pressure 138/62 Pulse Oximetry 96 94 07/03/25 19:05 07/03/25 19:05 07/03/25 19:10 Pulse Rate 33 L 30 L Respiratory Rate 21 18 Blood Pressure 127/60 Pulse Oximetry 96 96 07/03/25 19:10 07/03/25 19:15 07/03/25 19:15 Pulse Rate 29 L Respiratory Rate 20 Blood Pressure 126/56 L 115/56 L Pulse Oximetry 95 07/03/25 19:26 07/03/25 19:26 07/03/25 19:30 Pulse Rate 40 L 46 L Respiratory Rate 27 H Blood Pressure 131/60 Pulse Oximetry 93 95 07/03/25 19:31 07/03/25 19:31 07/03/25 19:35 Pulse Rate 38 L 30 L Respiratory Rate 16 Blood Pressure 141/62 H Pulse Oximetry 96 96 07/03/25 19:35 07/03/25 19:40 07/03/25 19:40 Pulse Rate 31 L Respiratory Rate 17 Blood Pressure 106/50 L 111/55 L Pulse Oximetry 96 MDM - Arrhythmia/Palpitations <Karlene Harrison, DO - Last Filed: 07/03/25 16:02> Lab Data 07/03/25 14:00 07/03/25 14:00 Labs: Lab Results 07/03/25 07/03/25 07/03/25 Range/Units 14:00 16:04 21:30 WBC 8.4 (4.5-11.0) X10^3/uL RBC 4.26 L (4.5-5.9) X10^6/uL Hgb 13.9 (13.5-17.5) g/dL Hct 40.0 L (41-53) % MCV 94.0 (80-100) fL MCH 32.6 (26-34) PG MCHC 34.7 (30-36) % RDW 12.8 (11.6-14.8) % Plt Count 200 (150-400) X10^3/uL Neut % (Auto) 61.0 (50-75) % Lymph % (Auto) 22.5 L (25-40) % [place] % (Auto) 14.0 (3-14) % Eos % (Auto) 2.0 (2-4) % Baso % (Auto) 0.5 (0-2) % Neut # (Auto) 5100 (2501-4695) /uL Lymph # (Auto) 1900 (4860-9768) /uL [place] # (Auto) 1200 H (0-900) /uL Eos # (Auto) 200 (0-450) /uL Baso # (Auto) 0 (0-100) /uL PT 12.4 (9.4-12.5) SECONDS INR 1.1 (0.9-1.3) APTT 32 50 H D (25.1-36.5) SECONDS Sodium 137 (137-145) mmol/L Potassium 3.6 (3.4-5.1) mmol/L Chloride 106 (98-107) mmol/L Carbon Dioxide 24 (22-32) mmol/L BUN 25 H (9-20) mg/dL Creatinine 1.50 H (0.66-1.25) mg/dL Estimated GFR 46 L (>60) mL/min BUN/Creatinine Ratio 16.7 (6-22) Glucose 121 H (70-99) mg/dL Calcium 9.0 (8.4-10.2) mg/dL Magnesium 1.9 (1.6-2.3) mg/dL Total Bilirubin 1.0 (0.2-1.3) mg/dL AST 60 H (17-59) IU/L ALT 43 (<50) IU/L Alkaline Phosphatase 51 (38-126) U/L Total Creatine Kinase 146 (55-170) U/L Troponin I 5.690 H* 5.890 H* (0.01-0.034) ng/mL NT-Pro-B Natriuret Pep 2520 H (<450) pg/mL Total Protein 7.0 (6.3-8.2) g/dL Albumin 4.0 (3.5-5.0) g/dL Globulin 3.0 (1.7-4.1) g/dL Albumin/Globulin Ratio 1.3 (1.0-2.8) Lipase 64 (23-300) U/L Imaging Data Chest x-ray: Radiologist's Impresson: 1PROCEDURE: XR CHEST 1V INDICATIONS: Chest Pain TECHNIQUE: One view of the chest was acquired. COMPARISON: None. FINDINGS AND IMPRESSION: No airspace consolidation or pleural effusion on this single view study. Limited evaluation due to low lung volumes. Suspected nodule seen in the right upper lung measuring 1.1 cm. Differential includes a calcified granuloma. Heart size is at the upper limit of normal. Prominent mediastinal aortic contours, indeterminate, may be related to tortuosity. Degenerative osseous findings. Dictated by: Casper Arguello M.D. on 07/03/2025 at 14:19 ECG Data Attestation: I personally reviewed and interpreted this ECG as follows: Prior ECG tracings: not available for review Interpretation: Sinus bradycardia with first-degree AV aurea block rate 33 CA interval 480 QRS 152 QTC 490 T-wave inversion noted in lead [address] changes MDM Narrative Medical decision making narrative: MDM CC: Weakness Complicating co-morbidities: Coronary artery disease, hypertension Data collected from: Patient Medical records reviewed: Minimal records Differential considered: Electrolyte abnormality anemia, AV aurea are Yadav arrhythmia Exam documented above, pertinent findings include: Alert well-appearing 84-year-old Lab Test results independently reviewed as above. Pertinent findings: Troponin positive 5.69--> BNP 2520 CBC no leukocytosis no anemia CMP mild VANESSA creatinine 1.50 previous is 1.22 in 2021 glucose 121 Bilirubin liver enzymes within normal limits Independently reviewed EKG as above Sinus bradycardia first-degree AV aurea block with CA interval for a no ST changes but he does have T-wave inversion noted in lead 3 no prior EKGs to compare Imaging studies independently reviewed: Chest x-ray no acute cardiopulmonary process Consultations: 1421 Dr. Frankel, cardiology updated patient's symptoms test results recommends waiting for lab work okay to give fluids may need a stress test 1515 cardiology at [facility] updated patient's symptoms test results elevated troponin 5.6, agrees with transfer to higher level of care 1545 Dr. Solis hospitalist accepts transfer Treatments: Atropine, IV fluids Re-evaluations: After 0.5 mg of atropine patient really did not respond IV fluids had minimal effect. Discussion: Patient 84-year-old male presenting today with weakness. He is found to have a first-degree AV aurea block and bradycardia. T-wave inversion noted in lead [address]ations and a positive troponin. Patient has no chest pain or shortness of breath. Blood pressure is stable. As long as patient remains he is relatively asymptomatic. <Wayne Peralta, DO - Last Filed: 07/04/25 10:13> Lab Data Labs: Lab Results 07/03/25 07/03/25 07/03/25 Range/Units 14:00 16:04 21:30 WBC 8.4 (4.5-11.0) X10^3/uL RBC 4.26 L (4.5-5.9) X10^6/uL Hgb 13.9 (13.5-17.5) g/dL Hct 40.0 L (41-53) % MCV 94.0 (80-100) fL MCH 32.6 (26-34) PG MCHC 34.7 (30-36) % RDW 12.8 (11.6-14.8) % Plt Count 200 (150-400) X10^3/uL Neut % (Auto) 61.0 (50-75) % Lymph % (Auto) 22.5 L (25-40) % [place] % (Auto) 14.0 (3-14) % Eos % (Auto) 2.0 (2-4) % Baso % (Auto) 0.5 (0-2) % Neut # (Auto) 5100 (1099-8124) /uL Lymph # (Auto) 1900 (3536-0443) /uL [place] # (Auto) 1200 H (0-900) /uL Eos # (Auto) 200 (0-450) /uL Baso # (Auto) 0 (0-100) /uL PT 12.4 (9.4-12.5) SECONDS INR 1.1 (0.9-1.3) APTT 32 50 H D (25.1-36.5) SECONDS Sodium 137 (137-145) mmol/L Potassium 3.6 (3.4-5.1) mmol/L Chloride 106 (98-107) mmol/L Carbon Dioxide 24 (22-32) mmol/L BUN 25 H (9-20) mg/dL Creatinine 1.50 H (0.66-1.25) mg/dL Estimated GFR 46 L (>60) mL/min BUN/Creatinine Ratio 16.7 (6-22) Glucose 121 H (70-99) mg/dL Calcium 9.0 (8.4-10.2) mg/dL Magnesium 1.9 (1.6-2.3) mg/dL Total Bilirubin 1.0 (0.2-1.3) mg/dL AST 60 H (17-59) IU/L ALT 43 (<50) IU/L Alkaline Phosphatase 51 (38-126) U/L Total Creatine Kinase 146 (55-170) U/L Troponin I 5.690 H* 5.890 H* (0.01-0.034) ng/mL NT-Pro-B Natriuret Pep 2520 H (<450) pg/mL Total Protein 7.0 (6.3-8.2) g/dL Albumin 4.0 (3.5-5.0) g/dL Globulin 3.0 (1.7-4.1) g/dL Albumin/Globulin Ratio 1.3 (1.0-2.8) Lipase 64 (23-300) U/L MDM Narrative Medical decision making narrative: MDM CC: Weakness Complicating co-morbidities: Coronary artery disease, hypertension Data collected from: Patient Medical records reviewed: Minimal records Differential considered: Electrolyte abnormality anemia, AV aurea are Yadav arrhythmia Exam documented above, pertinent findings include: Alert well-appearing 84-year-old Lab Test results independently reviewed as above. Pertinent findings: Troponin positive 5.69--> BNP 2520 CBC no leukocytosis no anemia CMP mild VANESSA creatinine 1.50 previous is 1.22 in 2021 glucose 121 Bilirubin liver enzymes within normal limits Independently reviewed EKG as above Sinus bradycardia first-degree AV aurea block with CA interval for a no ST changes but he does have T-wave inversion noted in lead 3 no prior EKGs to compare Imaging studies independently reviewed: Chest x-ray no acute cardiopulmonary process Consultations: 1421 Dr. Frankel, cardiology updated patient's symptoms test results recommends waiting for lab work okay to give fluids may need a stress test 1515 cardiology at [facility] updated patient's symptoms test results elevated troponin 5.6, agrees with transfer to higher level of care 1545 Dr. Solis hospitalist accepts transfer Treatments: Atropine, IV fluids Re-evaluations: After 0.5 mg of atropine patient really did not respond IV fluids had minimal effect. Discussion: Patient 84-year-old male presenting today with weakness. He is found to have a first-degree AV aurea block and bradycardia. T-wave inversion noted in lead [address] elevations and a positive troponin. Patient has no chest pain or shortness of breath. Blood pressure is stable. As long as patient remains he is relatively asymptomatic. 950pm Dr. Kassandra Ahumada MD at [facility] recommended Dopamine drip and to [facility] ICU 951pm transfer center will call back after gathering info 958pm ICU [facility] has accepted pt for transfer Discharge Plan Departure Patient Disposition: [facility] Clinical Impression: Bradycardia, Non-ST elevation [place] (NSTEMI) Prescriptions: No Action losartan-hydrochlorothiazide 100-12.5 mg tablet 1 tab PO DAILY melatonin 1 mg tablet 1 mg PO BEDTIME PRN (Reason: Sleep) multivitamin [Daily Multi-Vitamin] Tablet 2 tab PO DAILY Referrals: Callum Jain MD [Primary Care Provider, Family Practice]
[2025-07-03 14:11] LABS: Add Manual Diff / Slide Review NO; Hematocrit 40.0 % (41-53); Hemoglobin 13.9 g/dL (13.5-17.5); Lymphocytes Absolute Auto 1900 /uL (1100-4500); Mean Corpuscular HGB Conc 34.7 % (30-36); Mean Corpuscular Hemoglobin 32.6 PG (26-34); Mean Corpuscular Volume 94.0 fL (80-100); Platelet Count 200 X10^3/uL (150-400)
[2025-07-03] MEDS: ASPIRIN 81 MG CHEW TAB 324 MG PO (14:14)
[2025-07-03] MEDS: ATROPINE 1 MG/10 ML SYRINGE 0.5 MG IV (14:14)
[2025-07-03 14:17] LABS: INR 1.1 (0.9-1.3); Prothrombin Time 12.4 SECONDS (9.4-12.5)
[2025-07-03 14:19] LABS: PTT Partial Thromboplastin Tim 32 SECONDS (25.1-36.5)
[2025-07-03 14:21] LABS: Alanine Aminotransferase 43 IU/L (<50); Albumin 4.0 g/dL (3.5-5.0); Albumin Globulin Ratio 1.3 (1.0-2.8); Alkaline Phosphatase 51 U/L (38-126); Blood Urea Nitrogen 25 mg/dL (9-20); Calcium 9.0 mg/dL (8.4-10.2); Carbon Dioxide 24 mmol/L (22-32); Chloride 106 mmol/L (98-107); Creatine Kinase 146 U/L (55-170); Estimated Glomerular Filt Rate 46 mL/min (>60); Globulin 3.0 g/dL (1.7-4.1); Glucose 121 mg/dL (70-99); HEMOLYSIS < 15 (0-50); Lipase 64 U/L (23-300); Magnesium 1.9 mg/dL (1.6-2.3); Potassium 3.6 mmol/L (3.4-5.1); Sodium 137 mmol/L (137-145); Total Protein 7.0 g/dL (6.3-8.2)
[2025-07-03] MEDS: SODIUM CHLORIDE 0.9% 1,000 ML 1000 ML IV (14:21)
[2025-07-03 14:33] LABS: NT-proBNP (BNP-Adult 18+) 2520 pg/mL (<450)
[2025-07-03 14:35] LABS: Troponin I 5.690 ng/mL (0.01-0.034)
[2025-07-03] MEDS: HEPARIN DRIP 25,000 UNIT/500 ML IV.SOLN 19.992 UNIT IV (14:55)
[2025-07-03] MEDS: HEPARIN 5,000 UNIT/ML VIAL 5000 UNIT IV (14:55)
--- NOTE | 2025-07-03 15:06 | EKG_ITS ---
[place] [id number] [place] [id number] Test Date: 2025-07-03 Pat Name: Viktor Mullins Department[facility] Room: Gender: Male Implementation Technician: : 1940 Requested By: Order Number: [id number] Reading MD: Mike Patel Measurements Intervals [place] Rate: 35 P: 55 AL: 398 QRS: -37 QRSD: 150 T: -28 QT: 578 QTc: 441 Interpretive Statements Critical Test Result: Low HR Marked sinus bradycardia with 1st degree AV block Left axis deviation Right bundle branch block Possible Lateral infarct , age undetermined Electronically Signed On 07-04-2025 15:05:52 PST by Mike Patel
[2025-07-03] MEDS: SODIUM CHLORIDE 0.9% FLUSH 9 ML, EPINEPHrine 0.1 MG IV ×4 (16:36→18:55)
[2025-07-03 16:40] LABS: Troponin I 5.890 ng/mL (0.01-0.034)
[2025-07-03 22:12] LABS: PTT Partial Thromboplastin Tim 50 SECONDS (25.1-36.5)
== END 2025-07-03 23:04 | disposition short-term general hospital (02) ==
PROVIDERS: Emergency Medicine; Emergency Provider Family Medicine; Family Provider Family Medicine; PCP Family Medicine
DX: R00.1 Bradycardia, unspecified (principal); I21.4 Non-ST elevation (NSTEMI) myocardial infarction; R53.1 Weakness; R42 Dizziness and giddiness; I10 Essential (primary) hypertension
CPT/HCPCS: 36415; 71045; 80053; 82550; 83690; 83735; 83880; 84484; 85025; 85610; 85730; 93005; 96361; 96374; 96375; 96376; 99284; J0165; J0461; J1644; J7030